=== PATIENT | male | born 1945 | race Caucasian/White ===

== ENCOUNTER → 2020-07-25 08:43 | Outpatient (BNVA) | payer OTHER, SELFPAY | PROVIDERS: PCP Family Medicine; Referring Provider Family Medicine; Visit Provider Urology | DX: Z76.89 Persons encountering health services in other specified circumstances (principal) ==

== ENCOUNTER → 2021-10-07 08:58 | Outpatient (BNVA) | payer OTHER, SELFPAY | PROVIDERS: PCP Family Medicine; Visit Provider Urology ==

== ENCOUNTER → 2021-11-05 08:59 | Outpatient (BNVA) | payer OTHER, SELFPAY | PROVIDERS: PCP Family Medicine; Visit Provider Urology | DX: Z85.51 Personal history of malignant neoplasm of bladder (principal); T83.190A Other mechanical complication of urinary electronic stimulator device, initial encounter; N31.9 Neuromuscular dysfunction of bladder, unspecified | CPT/HCPCS: 52000 ==

== ENCOUNTER 2021-12-14 06:07 | Day surgery (SDC) | payer OTHER, SELFPAY ==
[2021-12-08 11:00] VITALS: BMI 30.7
--- NOTE | 2021-12-11 09:49 | HO.ANESPROP2 ---
Documented by User: Abbi Abarca NP 12/11/21 09:49 HPI - Anesthesia Eval Consult details Narrative: 76yo M for Interstim Generator Change with lead replacement Eliquis for DVT/Stroke Optimized per PCP and ok to hold eliquis PMFSH Active Problems Active Problems: All Active Problems (Updated 12/08/21 @ 10:44 by Tatum Dave RN) Urinary urgency (Acute) Urinary frequency (Acute) Microscopic hematuria (Acute) Bladder cancer (Acute) Hypotonic neurogenic bladder (Acute) Past Medical History Medical History (Updated 12/08/21 @ 10:44 by Tatum Dave RN) DVT (deep venous thrombosis) Glaucoma H/O urinary frequency Hx of bladder cancer Status post insertion of nerve stimulator Stroke Surgical History Surgical History (Updated 12/08/21 @ 10:44 by Tatum Dave RN) History of surgery Hx of cystoscopy Social History Social History Patient Tobacco Use Status: Tobacco use Unknown Meds Allergies Allergy/AdvReac Type Severity Reaction Status Date / Time No Known Allergies Allergy Verified 10/07/21 09:02 [No Known Allergies*] Home Medications Medication Instructions Recorded Confirmed Last Taken Type dorzolamide 22.3 mg-timolol 6.8 1 drp OPHTHALMIC (EYE) Q12H 07/25/20 12/08/21 12/14/21 History mg/mL eye drops latanoprost 0.005 % eye drops 1 drp OPHTHALMIC (EYE) BEDTIME 07/25/20 12/08/21 Unknown History omeprazole 20 mg capsule,delayed 20 mg PO DAILY 07/25/20 Unknown History release apixaban 5 mg tablet (Eliquis) 5 mg PO BID 10/07/21 12/08/21 12/07/21 History netarsudil 0.02 % eye drops 1 drp OPHTHALMIC (EYE) DAILY 10/07/21 12/08/21 12/14/21 History (Rhopressa) Exam Exam Date and Time: December 11, 2021 0949 Height,Weight and Vital Signs: Height 5 ft 9 in Weight 94.347 kg Assessment and Plan Assessment Anesthesia Assessment: Chart Reviewed Documented by User: Rafita Gay MD 12/14/21 16:56 [facility] Past Medical History Medical History (Updated 12/08/21 @ 10:44 by Tatum Dave RN) DVT (deep venous thrombosis) Glaucoma H/O urinary frequency Hx of bladder cancer Status post insertion of nerve stimulator Stroke Family History Family history of problems with anesthesia: No Surgical History Surgical History (Updated 12/08/21 @ 10:44 by Tatum Dave RN) History of surgery Hx of cystoscopy History of Problems with Anesthesia: No Social History Social History Patient Tobacco Use Status: Tobacco use Unknown Meds Allergies Allergy/AdvReac Type Severity Reaction Status Date / Time No Known Allergies Allergy Verified 10/07/21 09:02 [No Known Allergies*] Home Medications Medication Instructions Recorded Confirmed Last Taken Type dorzolamide 22.3 mg-timolol 6.8 1 drp OPHTHALMIC (EYE) Q12H 07/25/20 12/08/21 12/14/21 History mg/mL eye drops latanoprost 0.005 % eye drops 1 drp OPHTHALMIC (EYE) BEDTIME 07/25/20 12/08/21 Unknown History omeprazole 20 mg capsule,delayed 20 mg PO DAILY 07/25/20 Unknown History release apixaban 5 mg tablet (Eliquis) 5 mg PO BID 10/07/21 12/08/21 12/07/21 History netarsudil 0.02 % eye drops 1 drp OPHTHALMIC (EYE) DAILY 10/07/21 12/08/21 12/14/21 History (Rhopressa) Exam Airway Mallampati Class: III TM Dist: >3cm Neck ROM: Full Denture: Upper Loose/Missing/Broken Teeth: Yes Heart: rrr Lungs: bl breath sounds Assessment and Plan Assessment Anesthesia Assessment: Anesthesia Plan Discussed Final Anesthetic Review Family History of Problems with Anesthesia: No History of Problems with Anesthesia: No NPO: Yes ASA Class: III Final Preanesthetic Review: No Changes in Pt Med Stat, Meds/Allgs Chart Reviewed, Consent Obtained/Reviewed and Anes Risks/Benef Reviewed Patient Risk: Intermediate Procedure Risk: Intermediate Anesthetic Plan Anesthetic Plan: MAC: Disposition: Standard PACU
--- NOTE | ~2021-12-14 | FL_ITS ---
EXAMINATION: XR FLUOROSCOPY WITH IMAGES CLINICAL INFORMATION: InterStim lead change. COMPARISON: None. TECHNIQUE: Fluoroscopy performed by Dr. Junior Gifford Fluoroscopy time: 78.8 seconds Dose: 48.02 mGy Images: 2 FINDINGS: There is presacral insertion of InterStim lead which has been changed as per history. FL/FL guidance in OR IMPRESSION: Fluoroscopy was provided to the referring physician for change of lead.
[2021-12-14 06:30] VITALS: BP 172/69; PULSE 47; RESP 16; TEMP 36.5; O2SAT 99
[2021-12-14] MEDS: Lactated Ringers 1,000 ML 100 ML IVCONT (06:39)
--- NOTE | 2021-12-14 07:35 | MHC.SHP ---
Pre-Procedural Eval Section A Date of Service: 12/14/21 The patient is an INPATIENT: No Changes since office visit: No Cold of Flu in the past 2 weeks, No New Medical Problems, No Changes in Medication and No Patient answered all questions The History & Physical has been completed within 30 days and I have reviewed it.: Yes Section B Chief Complaint: urge incontinance Details of Present Illness: INterstim generator and lead not working Allergies: Allergies Allergy/AdvReac Type Severity Reaction Status Date / Time No Known Allergies Allergy Verified 10/07/21 09:02 [No Known Allergies*] Plan Diagnosis/Plan: Unchanged (chnage of lead and generator) I have reviewed the history and physical and performed a pertinent physical examination on my patient. No changes have occurred unless specified.
[2021-12-14 09:42] VITALS: BP 129/73; PULSE 95; RESP 16; TEMP 36.6; O2SAT 97
--- NOTE | 2021-12-14 09:49 | W.PM.OPN ---
Operative Note Operative Note Date of Service: 12/14/21 Narrative: PreOperative Diagnosis: Overactive bladder with urinary urgency and frequency Post Operative Diagnosis: Overactive bladder with urinary urgency and frequency Procedure: 1.) Removal of InterStim lead 2.) Removal of InterStim battery 3.) Placement of InterStim lead 4.) Placement of InterStim battery Surgeon: Dr Balta Pacheco Anesthesia: sedation Indications for procedure: overactive bladder failure response to oral medications. Had indwelling InterStim for over 10 years. Battery and lead no longer effective. Procedure: After informed consent was verified the patient was brought to the operating room. Sedation anesthesia was administered per protocol. the patient was placed in a prone position and prepped and draped in a sterile fashion. Safety pause time-out was performed. Local anesthetic was infiltrated around the initial battery pocket incision on Is lateral superior buttock. Incision was made and taken down till the battery was encountered. The battery pocket was opened and a battery brought out to the skin. Using the C-arm and a snap the lead entering S3 on the right side was targeted. This was below the original sacral incision. Local anesthetic was infiltrated around the prior incision and incision made through the skin. Using blunt dissection the original lead was isolated and brought up through our skin incision. This was get disconnected from the battery to give us the full lead in the sacral position. The lead was dissected down until we could palpate the transition to the thickened plastic. Using a right angle clamp we were able to fully withdrawal the old lead from its position in the S3 foramen. Initially we attempted to replace the lead into the S3 position on the right side. The needle on imaging consistently introduced to S4 or S2. On testing neither position elicited appropriate responses. Decision was made to proceed to lead placement on the left side. Using the C-arm in an AP and lateral view the finding needle was introduced into the S3 foramen running from a caudad to chordal direction. Using the development team lead we could confirm good toe movement and Dony response. The internal introducer from the needle was removed and the control lead placed. The find needle was removed and the dilator sheath introduced. Under fluoroscopic guidance the dilator sheath was advanced till the marker was seen mid point through the sacral bone on the lateral image. The internal cannula from the dilator was removed. The guidewire was removed. The active lead was then introduced through the dilator sheath and advanced so that the 3rd and 4th marked electrodes crossed the internal boundary line of the sacrum. The testing electrode was then hooked up to each of the wire electrodes 0 through 3 and good Dony and toe response is was seen at low amplitude 2.0 amps. This confirmed the clinically relevant position of the live wire. Under live fluoroscopy the introducer sheath was removed deploying the tines of the wire ensuring that the live wire remained in the previously described position. The tunneling device was then used to bridge the distance between the sacral vertical incision and the desired location of the battery pocket. The live wire was placed through the tunneling device and brought out into the battery pocket. The sacral incision was washed with water. A new battery was connected to the live wire and placed into the subcutaneous pocket. The battery was tested and had positive nut picker and displayed normal impedance on all 4 channels. The battery pocket had been washed with sterile water prior to placement of the battery. Interrupted 3-0 Vicryl sutures were used to close the defect spaces and bring skin edges together. Running 4-0 Monocryl sutures were used to appose skin edges. Incisions were dressed using skin glue followed by Tegaderm dressing. Patient tolerated procedure well was extubated in operating room transferred in stable condition to the recovery area. CPT full device replacement 29950, [id number], [id number]
[2021-12-14 09:57] VITALS: BP 161/77; PULSE 96; RESP 16; O2SAT 97
[2021-12-14 10:12] VITALS: BP 156/81; PULSE 65; RESP 16; O2SAT 97
[2021-12-14 10:28] VITALS: BP 155/74; PULSE 66; RESP 16; TEMP 36.1; O2SAT 96
[2021-12-14 10:45] VITALS: BP 156/81; PULSE 68; RESP 16; O2SAT 96
== END 2021-12-14 10:58 | disposition home or self-care (01) ==
PROVIDERS: PCP Family Medicine; Visit Provider Urology
PROC: (CPT 63685; principal; 2021-12-14 07:30)
DX: N39.41 Urge incontinence (principal); R35.0 Frequency of micturition; N32.81 Overactive bladder; C67.9 Malignant neoplasm of bladder, unspecified; Z96.82 Presence of neurostimulator; H40.9 Unspecified glaucoma; Z86.73 Personal history of transient ischemic attack (TIA), and cerebral infarction without residual deficits; Z86.718 Personal history of other venous thrombosis and embolism; Z79.01 Long term (current) use of anticoagulants
CPT/HCPCS: 64561; 64590; C1767; C1778; C1787; J0690; J2250; J3010

== ENCOUNTER → 2022-01-01 09:06 | Outpatient (BNVA) | payer OTHER, SELFPAY | PROVIDERS: PCP Family Medicine; Visit Provider Urology | DX: Z13.89 Encounter for screening for other disorder (principal) ==

== ENCOUNTER → 2022-02-02 09:28 | Outpatient (BNVA) | payer OTHER, SELFPAY | PROVIDERS: PCP Family Medicine; Visit Provider Urology | DX: Z13.89 Encounter for screening for other disorder (principal) ==

== ENCOUNTER 2022-08-10 10:06 | Outpatient (REF) | payer OTHER, SELFPAY ==
[2022-08-10 17:11] LABS: Urine Cytology See Pathology rpt
== END 2022-08-10 10:07 | disposition home or self-care (01) ==
LOC: HO.LAB 10:06
PROVIDERS: Visit Provider Urology
DX: C67.9 Malignant neoplasm of bladder, unspecified (principal); N31.9 Neuromuscular dysfunction of bladder, unspecified; R35.0 Frequency of micturition; R31.29 Other microscopic hematuria
CPT/HCPCS: 51798; 88112

== ENCOUNTER 2022-10-07 10:42 | Outpatient (REF) | payer OTHER, SELFPAY ==
[2022-10-07 17:50] LABS: Urine Cytology See Pathology rpt
== END 2022-10-07 10:43 | disposition home or self-care (01) ==
LOC: HO.LAB 10:42
PROVIDERS: PCP Family Medicine; Visit Provider Urology
DX: C67.9 Malignant neoplasm of bladder, unspecified (principal); R35.0 Frequency of micturition; R33.9 Retention of urine, unspecified; N31.9 Neuromuscular dysfunction of bladder, unspecified; R39.15 Urgency of urination
CPT/HCPCS: 52000; 88112

== ENCOUNTER 2022-11-22 06:03 | Day surgery (SDC) | payer OTHER, SELFPAY ==
--- NOTE | 2022-11-19 10:58 | P.CONAN_ITS ---
Documented by User: Abbi Abarca NP 11/19/22 10:58 HPI - Anesthesia Eval Consult details Narrative: 77yo M for Cystoscopy Bladder Fulguration s/p interstim 12/2021 with MAC Doreenquis for DVT PMFSH Active Problems Active Problems: All Active Problems (Updated 01/01/22 @ 09:56 by Balta Pacheco MD) Urinary urgency (Acute) Urinary frequency (Acute) Microscopic hematuria (Acute) Bladder cancer (Acute) Hypotonic neurogenic bladder (Acute) Past Medical History Medical History DVT (deep venous thrombosis) Glaucoma H/O urinary frequency Hx of bladder cancer Stroke Family History Family history of problems with anesthesia: No Surgical History Surgical History (Updated 11/17/22 @ 14:09 by Tatum Dave RN) History of surgery Hx of cystoscopy Status post insertion of nerve stimulator History of Problems with Anesthesia: No Social History Social History Patient Tobacco Use Status: Former Tobacco user Quit Date: 25 years ago Use of substances other than those prescribed or required for medical reasons: No Are you DNR?: No Advance Directives: No Advance Directives Information Provided: Yes Meds Allergies Allergy/AdvReac Type Severity Reaction Status Date / Time No Known Allergies Allergy Verified 01/01/22 09:35 [No Known Allergies*] Home Medications Medication Instructions Recorded Confirmed Last Taken Type dorzolamide 22.3 mg-timolol 6.8 1 drp ophthalmic (eye) Q12H 07/25/20 11/22/22 12/14/21 History mg/mL eye drops latanoprost 0.005 % eye drops 1 drp ophthalmic (eye) BEDTIME 07/25/20 11/22/22 Unknown History apixaban 5 mg tablet (Eliquis) 5 mg PO BID 10/07/21 11/22/22 11/17/22 History netarsudil 0.02 % eye drops 1 drp ophthalmic (eye) DAILY 10/07/21 11/22/22 12/14/21 History (Rhopressa) brinzolamide 1 %-brimonidine 0.2 % 1 drp ophthalmic (eye) Q12H 02/02/22 11/22/22 Unknown History eye drops,suspension (Simbrinza) timolol maleate 0.5 % eye drops 1 drp ophthalmic (eye) QAM 02/02/22 11/22/22 Unknown History Exam Exam Date and Time: November 19, 2022 1058 Height,Weight and Vital Signs: Height 5 ft 9 in Assessment and Plan Assessment Anesthesia Assessment: Chart Reviewed Final Anesthetic Review Family History of Problems with Anesthesia: No History of Problems with Anesthesia: No Documented by User: Zaheer Higgins MD 11/22/22 07:32 [facility] Past Medical History Medical History DVT (deep venous thrombosis) Glaucoma H/O urinary frequency Hx of bladder cancer Stroke Surgical History Surgical History (Updated 11/17/22 @ 14:09 by Tatum Dave RN) History of surgery Hx of cystoscopy Status post insertion of nerve stimulator Social History Social History Patient Tobacco Use Status: Former Tobacco user Quit Date: 25 years ago Use of substances other than those prescribed or required for medical reasons: No Are you DNR?: No Advance Directives: No Advance Directives Information Provided: Yes Meds Allergies Allergy/AdvReac Type Severity Reaction Status Date / Time No Known Allergies Allergy Verified 01/01/22 09:35 [No Known Allergies*] Home Medications Medication Instructions Recorded Confirmed Last Taken Type dorzolamide 22.3 mg-timolol 6.8 1 drp ophthalmic (eye) Q12H 07/25/20 11/22/22 12/14/21 History mg/mL eye drops latanoprost 0.005 % eye drops 1 drp ophthalmic (eye) BEDTIME 07/25/20 11/22/22 Unknown History apixaban 5 mg tablet (Eliquis) 5 mg PO BID 10/07/21 11/22/22 11/17/22 History netarsudil 0.02 % eye drops 1 drp ophthalmic (eye) DAILY 10/07/21 11/22/22 12/14/21 History (Rhopressa) brinzolamide 1 %-brimonidine 0.2 % 1 drp ophthalmic (eye) Q12H 02/02/22 11/22/22 Unknown History eye drops,suspension (Simbrinza) timolol maleate 0.5 % eye drops 1 drp ophthalmic (eye) QAM 02/02/22 11/22/22 Unknown History Exam Airway Mallampati Class: I TM Dist: >3cm Neck ROM: Full Partial: Upper Heart: ok Lungs: ok Assessment and Plan Final Anesthetic Review NPO: Yes ASA Class: III Final Preanesthetic Review: No Changes in Pt Med Stat, Meds/Allgs Chart Reviewed, Consent Obtained/Reviewed and Anes Risks/Benef Reviewed Patient Risk: Intermediate Procedure Risk: Low Anesthetic Plan Anesthetic Plan: GA and Agree w/ Assess. and Plan Disposition: Standard PACU
[2022-11-22 06:21] VITALS: BP 131/69; PULSE 58; RESP 18; TEMP 36.4; O2SAT 98; BMI 30.2; BMI 30.8
[2022-11-22] MEDS: Lactated Ringers 1,000 ML 100 ML IVCONT (06:42)
--- NOTE | 2022-11-22 07:37 | P.HPSUR_ITS ---
Pre-Procedural Eval Section A Date of Service: 11/22/22 The patient is an INPATIENT: No Changes since office visit: No Cold of Flu in the past 2 weeks, No New Medical Problems, No Changes in Medication and No Patient answered all questions The History & Physical has been completed within 30 days and I have reviewed it.: No Section B Chief Complaint: Malignant neoplasm of bladder, unspecified Relevant Family History (Specify if Yes): No Relevant Social History: None Present Medications: see Short Stay Collaborative assessment Medical History: Significant History History of Previous Operations: Relevant previous surgery/procedure and date(s) Allergies: Allergies Allergy/AdvReac Type Severity Reaction Status Date / Time No Known Allergies Allergy Verified 01/01/22 09:35 [No Known Allergies*] Review of Systems Sugical H&P ROS: Negative: Constitution, Cardiovascular, Respiratory, Neurological, Psychiatric, Hem-Onc, Allergic/Immunologic, Gastrointestinal, Genitourinary, Musculoskeletal, Integumentary, Endocrine and Eyes/Ears/Nose/Throat Exam Surgical H&P Exam: Normal: HEENT, Normal: Heart, Normal: Lungs, Normal: Extremit ies, Normal: Abdomen, Normal: Skin and Normal: Neurological Plan Diagnosis/Plan: Unchanged ( cystoscopy, bladder biopsy, fulguration) I have reviewed the history and physical and performed a pertinent physical examination on my patient. No changes have occurred unless specified. Time Spent With Patient Time: Total time managing care of this patient today ____ minutes.
[2022-11-22 08:15] VITALS: BP 103/61; PULSE 61; RESP 16; TEMP 36.3; O2SAT 94
[2022-11-22 08:20] VITALS: BP 110/79; PULSE 67; RESP 16; O2SAT 95
[2022-11-22 08:25] VITALS: BP 125/62; PULSE 54; RESP 16; O2SAT 95
[2022-11-22 08:30] VITALS: BP 131/60; PULSE 53; RESP 16; O2SAT 95
[2022-11-22] MEDS: Acetaminophen 325 MG TABLET 975 MG PO (08:35)
[2022-11-22] MEDS: Phenazopyridine HCL 100 MG TABLET PO (08:37)
[2022-11-22 08:45] VITALS: BP 134/66; PULSE 59; RESP 16; O2SAT 98
--- NOTE | 2023-01-20 14:36 | W.PM.OPN ---
Operative Note Operative Note Date of Service: 11/22/22 Narrative: PreOperative Diagnosis: Hematuria with nonhealing bladder tumor Post Operative Diagnosis: Hematuria with nonhealing bladder tumor Procedure: cystoscopy, bladder biopsy, fulguration Surgeon: Dr Balta Pacheco Anesthesia: LMA Indications for procedure: Nonhealing bladder tumor on office cystoscopy. Here for cystoscopy, bladder biopsy. Evaluation. Procedure: After informed consent was verified the patient was brought to the operating room and placed in a supine position. Anesthesia was administered per protocol. The patient was placed in modified dorsal lithotomy position and prepped and draped in a sterile fashion. Safety pause time-out was performed. Antibiotics being given. Cystoscopy was performed. Right side area of nonhealing prior bladder resection noted. Biopsy performed Biopsy area +1 cm radius of bladder tissue was fulgurated The patient tolerated the procedure well. They were extubated in operating room and transferred in stable conditions recovery area. Pathology: Bladder biopsies Drains: None
== END 2022-11-22 09:45 | disposition home or self-care (01) ==
PROVIDERS: PCP Family Medicine; Visit Provider Urology
PROC: 0T5B8ZZ Destruction of Bladder, Via Natural or Artificial Opening Endoscopic (ICD-10-PCS; CPT 52234; principal; 2022-11-22 07:30)
DX: C67.9 Malignant neoplasm of bladder, unspecified (principal); Z96.82 Presence of neurostimulator; H40.9 Unspecified glaucoma; Z86.718 Personal history of other venous thrombosis and embolism; Z86.73 Personal history of transient ischemic attack (TIA), and cerebral infarction without residual deficits; Z79.01 Long term (current) use of anticoagulants; Z79.899 Other long term (current) drug therapy; Z87.891 Personal history of nicotine dependence
CPT/HCPCS: 52234; 88305; 88307; J1956; J3010

== ENCOUNTER → 2022-12-07 10:30 | Outpatient (BNVA) | payer OTHER, SELFPAY | PROVIDERS: PCP Family Medicine; Visit Provider Nurse Practitioner Family | DX: R39.15 Urgency of urination (principal); R35.0 Frequency of micturition; R31.29 Other microscopic hematuria; C67.9 Malignant neoplasm of bladder, unspecified | CPT/HCPCS: 51798 ==

== ENCOUNTER 2023-04-12 09:46 | Outpatient (AMB) | payer OTHER, SELFPAY ==
--- NOTE | 2023-04-12 09:58 | A.OFFVIS_ITS ---
Intake Intake Visit Reasons: 4m/cysto Intake Note: Patient is present for Cystoscopy Urology Med: Solifenacin (Patient has not been taking daily) Antibiotic Allergy: None Blood Thinner: Eliquis [facility]: [facility] Cyst[facility] used during Procedure LOT#:[id number] EXP: 01/31/2025 Allergies No Known Allergies [No Known Allergies*] Allergy (Verified 04/12/23 09:59) Medication List - Last Reconciled 04/12/23 by Balta Pacheco MD apixaban (Eliquis) 5 mg PO BID brinzolamide-brimonidine 1-0.2 % (Simbrinza) 1 drp ophthalmic (eye) Q12H dorzolamide-timolol 22.3-6.8 mg/mL 1 drp ophthalmic (eye) Q12H latanoprost 0.005% 1 drp ophthalmic (eye) BEDTIME levofloxacin 250 mg PO daily 3 days netarsudil 0.02% (Rhopressa) 1 drp ophthalmic (eye) DAILY solifenacin (Vesicare) 5 mg PO DAILY 90 days timolol maleate 0.5% 1 drp ophthalmic (eye) QAM HPI HPI Comments History of Present Illness Details Hernan is a pleasant 77 year old year old male patient of Dr. Panchal. He seen for following urologic conditions - lower urinary tract symptoms - urgency and frequency with incomplete emptying - bladder cancer Check cystoscopy today Grade 3 trabeculation Recommend only 1 coffee per day He also drinks soda. Recommend malcolm antwon only. Abx given for 3 days Refill anticholinergic Lower urinary tract symptoms Prior prostate intervention Urinary urgency frequency with incomplete emptying Had responded well to InterStim placement InterStim interrogated 2019 with traveling representative Nonfunctioning generator InterStim Lead and generator replacement 12/01 bladder Bladder cancer - superfical Prior superficial bladder cancer Cystoscopy 11/03 NAD with TURP defect; Cystoscopy with bladder biopsy and fulguration on 12/01; pathology results (Minute fragment of chronically inflamed lamina propria; no urothelium identified; multiple additional levels examined) - 04/03 NAD Now with occasional hematuria Has been on anticoagulation for femoral clot PFSH Medical History DVT (deep venous thrombosis) Glaucoma H/O urinary frequency Hx of bladder cancer Stroke Surgical History History of surgery Hx of cystoscopy Status post insertion of nerve stimulator Social History Patient Tobacco Use Status: Former Tobacco user Quit Date: 25 years ago Review of Systems Const Denies chills and Denies fever(s) Card Reports no additional complaints and Denies syncope Resp Denies cough GI Denies abdominal pain and Denies heartburn Reports as per HPI and Denies change in libido Neuro Denies syncope Psych Denies change in libido Endo Denies change in libido Physical Exam Const General: cooperative, healthy appearing, comfortable and no acute distress Orientation/consciousness: patient oriented x3 HEENT Face and sinus: Yes normal facial exam Mouth: moist mucous membranes Neck Neck: Yes normal visual inspection, Yes full ROM and Yes trachea midline Chest Chest palpation & inspection: normal inspection of the chest Resp Effort & Inspection: normal respiratory effort, able to speak in complete sentences and no respiratory distress GI Inspection: Yes normal to inspection Back/Spine/Pelvis Cervical Spine: normal cervical lordosis Thoracic/Lumbar Spine: thoracic and lumbar spine normal to inspection Skin General skin exam: no rashes or lesions noted Neuro General: patient oriented x3, gait normal, tone normal and moves all extremities Extrem General: Yes normal to inspection and Yes capillary refill normal Office Procedures Cystoscopy Consent Discussed risk and benefit or proposed procedure with the patient. Information consent for procedure given to the patient. Discussed technical aspects, risks, benefits and alternatives in full. Addressed all of the patient's questions and concerns regarding the procedure. The patient demonstrated knowledge and under standing. They wish to proceed with this procedure. Preparation The patient was prepped in the usual manner. A orthopedic rn was present and in the room. Genitalia was prepped with betadine solution in a sterile manner. Lidocaine Jelly 2% was placed into the urethra and 16Fr flexible Olympus cystoscope was inserted into the meatus after adequate lubrication. Procedure Meatus circumcised Urethra anterior posterior urethra normal Prostatic Urethra TURP defect Bladder examination with retroflexion of cystoscope Bladder Orifices normal shape and position Bladder Capacity large Trabeculations grade 3 Cellule Formation - Diverticulum Formation - Mucosal Erythema - Bladder Tumor - 25526-[id number] Procedure code (CPT) selection complete Office Meds lidocaine HCl Performing Provider: Balta Pacheco MD Administered by: Elana Dasilva RN on 04/12/23 10:02 Dose Route Admin Location Lot Number Expiration Date NDC [employer] 10 mL intra-urethral nitrofurantoin monohyd/m-cryst 100 mg Performing Provider: Balta Pacehco MD Administered by: Elana Dasilva RN on 04/12/23 10:02 Dose Route Admin Location Lot Number Expiration Date NDC Car Seat Maker 100 mg PO Results AMB Urinalysis, Automated UA Leukoctes 0 Rubén/uL Last Edit by Katie Rivas, [facility] on 04/12/23 10:01 UA Nitrite Negative Last Edit by Katie Rivas, A on 04/12/23 10:01 UA Urobilinogen 0.2 mg/dL Last Edit by Katie Rivas, A on 04/12/23 10:0 1 UA Protein 15 mg/dL Last Edit by Katie Rivas, A on 04/12/23 10:01 UA pH 6.0 Last Edit by Katie Rivas, A on 04/12/23 10:01 UA Blood 200 Bjorn/uL Last Edit by Katie Rivas, A on 04/12/23 10:01 UA Specific [place] 1.020 Last Edit by Katei Rivas, A on 04/12/23 10: 01 UA Ketone Negative Last Edit by Katie Rivas, A on 04/12/23 10:01 UA Bilirubin 0 mg/dL Last Edit by Katie Rivas, A on 04/12/23 10:01 UA Glucose 0 mg/dL Last Edit by Katie Rivas, [facility] on 04/12/23 10:01 Results Reviewed Results Reviewed: Laboratory Last Values Urine pH (Auto) 6.0 04/12/23 10:00 Specific [place] (Auto) 1.020 04/12/23 10:00 Urine Protein (Auto) 15 mg/dL 04/12/23 10:00 Glucose (UA)(Auto) 0 mg/dL 04/12/23 10:00 Urine Ketones (Auto) Negative 04/12/23 10:00 Urine Blood (Auto) 200 Bjorn/uL 04/12/23 10:00 Urine Nitrite (Auto) Negative 04/12/23 10:00 Urine Bilirubin (Auto) 0 mg/dL 04/12/23 10:00 Urine Urobilinogen (Auto) 0.2 mg/dL 04/12/23 10:00 Leukocyte Esterase (Auto) 0 Rubén/uL 04/12/23 10:00 Assessment & Plan Assessment & Plan (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, full replacement 2021 Code(s): N31.9 - Neuromuscular dysfunction of bladder, unspecified (2) Bladder cancer: Code(s): C67.9 - Malignant neoplasm of bladder, unspecified Plan Continue surveillance Orders: Orders Urine Cytology Today C67.9 - Malignant neoplasm of bladder, unspecified AMB Cystoscopy Today C67.9 - Malignant neoplasm of bladder, unspecified AMB Urinalysis Automated Today Z13.9 - Encounter for screening, unspecified Medications: New levofloxacin 250 mg PO daily 3 tabs 0RF 3 days C67.9 - Malignant neoplasm of bladder, unspecified Patient Instructions: Imaging studies, laboratory and physical exam results were discussed and reviewed in detail. No major barriers to patient understanding were identified. An opportunity to ask questions regarding the treatment plan was provided. All questions were answered. The patient expressed understanding and agreement with the above treatment plan. The patient is aware they should contact our office by phone for worsening of their current condition or the appearance of new urologic symptoms. Compliance is encouraged with any medications and followup testing that is ordered. It is a privilege to participate in the urologic care of your patient. If you have any questions or concerns regarding treatment for the above conditions, or other urologic issues, please do not hesitate to contact me. The office telephone contact is [phone]. This note is constructed using voice recognition software. While every effort has been made to ensure accuracy c programmer errors may have been included. Yours sincerely, Dr Balta Pacheco MD, DIANA [facility] - Urology Providers of Expert, Compassionate Care for the Genitourinary System Coding Level of Care Code Est Pt Level 3 (23121) Diagnoses Hypotonic neurogenic bladder N31.9 Bladder cancer C67.9 CPT Codes Cystoscopy - CPT: 85958-[id number] ([id number])
== END 2023-04-12 10:29 | disposition home or self-care (01) ==
PROVIDERS: Visit Provider Urology
DX: N31.9 Neuromuscular dysfunction of bladder, unspecified (principal); C67.9 Malignant neoplasm of bladder, unspecified
CPT/HCPCS: 52000; 99213

== ENCOUNTER 2023-04-12 09:46 | Outpatient (REF) | payer OTHER, SELFPAY ==
[2023-04-12 19:41] LABS: Urine Cytology See Pathology rpt
== END 2023-04-12 09:47 | disposition home or self-care (01) ==
LOC: HO.LAB 09:46
PROVIDERS: Visit Provider Urology
DX: C67.9 Malignant neoplasm of bladder, unspecified (principal)
CPT/HCPCS: 52000; 88112

== ENCOUNTER 2023-10-20 08:53 | Outpatient (REF) | payer OTHER, SELFPAY | END 2023-10-20 08:54 | disposition home or self-care (01) | LOC: HO.LAB 08:53 | PROVIDERS: PCP Family Medicine; Visit Provider Urology | DX: C67.9 Malignant neoplasm of bladder, unspecified (principal); R35.0 Frequency of micturition; N31.9 Neuromuscular dysfunction of bladder, unspecified | CPT/HCPCS: 52000; 81003; 88121 ==

== ENCOUNTER 2023-10-20 08:53 | Outpatient (AMB) | payer OTHER, SELFPAY ==
--- NOTE | 2023-10-20 08:54 | A.OFFVIS_ITS ---
Intake Intake Visit Reasons: 6M CYSTO(Bladder Ca) Intake Note: Patient is Present for Cystoscopy Urology Med: Vesicare Antibiotic Allergy: None Blood Thinner: Eliquis Patient confirmed that he has no new allergies to both medication and Antibiotic Confirmed that he has no changes in medication and is currently on Eliquis Daily URO- G Disposable Cystoscope lot: exp: Allergies No Known Allergies [No Known Allergies*] Allergy (Verified 10/20/23 09:00) HPI HPI Comments History of Present Illness Details Hernan is a pleasant 77 year old year old male patient of Dr. Panchal. He seen for following urologic conditions - lower urinary tract symptoms - urgency and frequency with incomplete emptying - bladder cancer Check cystoscopy today Grade 3 trabeculation Good response from InterStim No lesions seen in bladder Lower urinary tract symptoms Prior prostate intervention Urinary urgency frequency with incomplete emptying Had responded well to InterStim placement InterStim interrogated 2019 with community engagement representative Nonfunctioning generator InterStim Lead and generator replacement 12/01 bladder Bladder cancer - superfical Prior superficial bladder cancer Cystoscopy 11/03 NAD with TURP defect; Cystoscopy with bladder biopsy and fulguration on 12/01; pathology results (Minute fragment of chronically inflamed lamina propria; no urothelium identified; multiple additional levels examined) - 04/03 NAD Now with occasional hematuria Has been on anticoagulation for femoral clot PFSH Medical History DVT (deep venous thrombosis) Glaucoma Hx of bladder cancer Stroke H/O urinary frequency Surgical History Status post insertion of nerve stimulator Hx of cystoscopy History of surgery Social History Patient Tobacco Use Status: Former Tobacco user Quit Date: 25 years ago Review of Systems Const Denies chills and Denies fever(s) Card Reports no additional complaints and Denies syncope Resp Denies cough GI Denies abdominal pain and Denies heartburn Reports as per HPI and Denies change in libido Neuro Denies syncope Psych Denies change in libido Endo Denies change in libido Physical Exam Const General: cooperative, healthy appearing, comfortable and no acute distress Orientation/consciousness: patient oriented x3 HEENT Face and sinus: Yes normal facial exam Mouth: moist mucous membranes Neck Neck: Yes normal visual inspection, Yes full ROM and Yes trachea midline Chest Chest palpation & inspection: normal inspection of the chest Resp Effort & Inspection: normal respiratory effort, able to speak in complete sentences and no respiratory distress GI Inspection: Yes normal to inspection Back/Spine/Pelvis Cervical Spine: normal cervical lordosis Thoracic/Lumbar Spine: thoracic and lumbar spine normal to inspection Skin General skin exam: no rashes or lesions noted Neuro General: patient oriented x3, gait normal, tone normal and moves all extremities Extrem General: Yes normal to inspection and Yes capillary refill normal Office Procedures Cystoscopy Consent Discussed risk and benefit or proposed procedure with the patient. Information consent for procedure given to the patient. Discussed technical aspects, risks, benefits and alternatives in full. Addressed all of the patient's questions and concerns regarding the procedure. The patient demonstrated knowledge and understanding. They wish to proceed with this procedure. Preparation The patient was prepped in the usual manner. A automatic presser was present and in the room. Genitalia was prepped with betadine solution in a sterile manner. Lidocaine Jelly 2% was placed into the urethra and 16Fr flexible Olympus cystoscope was inserted into the meatus after adequate lubrication. Procedure Meatus circumcised Urethra anterior and posterior urethra normal Prostatic Urethra TURP defect with some bladder neck narrowing Bladder examination with retroflexion of cystoscope Bladder Orifices normal shape and position Bladder Capacity medium Trabeculations grade 2 Cellule Formation - Diverticulum Formation - Mucosal Erythema - Bladder Tumor - [id number]-[id number] DISPOSABLE SCOPE URO-G FLEXIBLE SCOPE Procedure code (CPT) selection complete Office Meds lidocaine HCl 2 % mucosal jelly in applicator Performing Provider: Balta Pacheco MD Performing Location: [facility] Administered by: Elana Gurrola RN on 10/20/23 09:11 Dose Route Admin Location Dispensed Lot Number Expiration Date [facility] [employer] Press Operator 10 mL intra-urethral 10 mL nitrofurantoin monohydrate/macrocrystals 100 mg capsule Performing Provider: Balta Pacheco MD Performing Location: [facility] Administered by: Elana Gurrola RN on 10/20/23 09:11 Dose Route Admin Location Dispensed Lot Number Expiration Date [facility] [employer] Operator 100 mg PO 1 cap naproxen 500 mg tablet Performing Provider: Balta Pacheco MD Performing Location: [facility] Administered by: Elana Gurrola RN on 10/20/23 09:11 Dose Route Admin Location Dispensed Lot Number Expiration Date NDC [employer] Operator 500 mg PO 1 tab Results AMB Urinalysis, Automated UA Leukoctes 0 Rubén/uL Last Edit by OPAL Nj on 10/20/23 09:07 UA Nitrite Negative Last Edit by ROHAN NjA on 10/20/23 09:07 UA Urobilinogen 0.2 mg/dL Last Edit by OPAL Nj on 10/20/23 09:0 7 UA Protein 15 mg/dL Last Edit by ROHAN NjA on 10/20/23 09:07 UA pH 6.0 Last Edit by ROHAN NjA on 10/20/23 09:07 UA Blood 80 Bjorn/uL Last Edit by OPAL Nj on 10/20/23 09:07 UA Specific Switchback 1.030 Last Edit by OPAL Nj on 10/20/23 09: 07 UA Ketone Negative Last Edit by OPAL Nj on 10/20/23 09:07 UA Bilirubin 0 mg/dL Last Edit by ROHAN NjA on 10/20/23 09:07 UA Glucose 0 mg/dL Last Edit by OPAL Nj on 10/20/23 09:07 Results Reviewed Results Reviewed: Laboratory Last Values Urine pH (Auto) 6.0 10/20/23 09:00 Specific Switchback (Auto) 1.030 10/20/23 09:00 Urine Protein (Auto) 15 mg/dL 10/20/23 09:00 Glucose (UA)(Auto) 0 mg/dL 10/20/23 09:00 Urine Ketones (Auto) Negative 10/20/23 09:00 Urine Blood (Auto) 80 Bjorn/uL 10/20/23 09:00 Urine Nitrite (Auto) Negative 10/20/23 09:00 Urine Bilirubin (Auto) 0 mg/dL 10/20/23 09:00 Urine Urobilinogen (Auto) 0.2 mg/dL 10/20/23 09:00 Leukocyte Esterase (Auto) 0 Rubén/uL 10/20/23 09:00 Assessment & Plan Assessment & Plan (1) Urinary frequency: Code(s): R35.0 - Frequency of micturition (2) 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, full replacement 2021 Code(s): N31.9 - Neuromuscular dysfunction of bladder, unspecified (3) Bladder cancer: Code(s): C67.9 - Malignant neoplasm of bladder, unspecified Plan Six-month follow-up PVR Orders: Orders AMB Cystoscopy Today C67.9 - Malignant neoplasm of bladder, unspecified FISH Bladder Cancer Today C67.9 - Malignant neoplasm of bladder, unspecified AMB Urinalysis Automated Today C67.9 - Malignant neoplasm of bladder, unspecified, Z13.9 - Encounter for screening, unspecified Patient Instructions: Imaging studies, laboratory and physical exam results were discussed and reviewed in detail. No major barriers to patient understanding were identified. An opportunity to ask questions regarding the treatment plan was provided. All questions were answered. The patient expressed understanding and agreement with the above treatment plan. The patient is aware they should contact our office by phone for worsening of their current condition or the appearance of new urologic symptoms. Compliance is encouraged with any medications and followup testing that is ordered. It is a privilege to participate in the urologic care of your patient. If you crowe ve any questions or concerns regarding treatment for the above conditions, or other urologic issues, please do not hesitate to contact me. The office telephone contact is [phone]. This note is constructed using voice recognition software. While every effort has been made to ensure accuracy healthcare project manager errors may have been included. Yours sincerely, Dr Balta Pacheco MD, DIA[facility] - Urology Providers of Expert, Compassionate Care for the Genitourinary System Coding Level of Care Code Est Pt Level 3 (27252) Diagnoses Urinary frequency R35.0 Hypotonic neurogenic bladder N31.9 Bladder cancer C67.9 CPT Codes Cystoscopy - CPT: 68323-[id number] ([id number])
== END 2023-10-20 09:30 | disposition home or self-care (01) ==
PROVIDERS: PCP Family Medicine; Visit Provider Urology
DX: R35.0 Frequency of micturition (principal); N31.9 Neuromuscular dysfunction of bladder, unspecified; C67.9 Malignant neoplasm of bladder, unspecified; Z13.9 Encounter for screening, unspecified
CPT/HCPCS: 52000; 99213

== ENCOUNTER 2024-06-06 14:34 | Outpatient (REF) | payer OTHER, SELFPAY ==
[2024-06-06 17:56] LABS: Urine Cytology See Pathology rpt
== END 2024-06-06 14:35 | disposition home or self-care (01) ==
LOC: HO.LAB 14:34
PROVIDERS: PCP Family Medicine; Visit Provider Urology
DX: C67.9 Malignant neoplasm of bladder, unspecified (principal)
CPT/HCPCS: 52000; 81003; 88112

== ENCOUNTER 2024-06-06 14:34 | Outpatient (AMB) | payer OTHER, SELFPAY ==
--- NOTE | 2024-06-06 14:56 | A.OFFVIS_ITS ---
Intake Visit Reasons: 6M Cysto/PVR(Bladder Ca) Intake Note: Patient is Present for Cystoscopy Urology Med: Vesicare Antibiotic Allergy:None Blood Thinner: Eliquis Last FISH Cytology: 10/2023 URO- G Disposable Cystoscope lot: [id number] exp:12/21/2026 Cytology was sent to lab today Patient states that there is a White patch on his Testicle and he is concerned. Banquet Server Required: No Accompanied by: Self / Same As Patient Allergies No Known Allergies [No Known Allergies*] Allergy (Verified 06/06/24 15:00) HPI Comments Details: Hernan is a pleasant 77 year old year old male patient of Dr. Panchal. He seen for following urologic conditions - lower urinary tract symptoms - urgency and frequency with incomplete emptying - bladder cancer Six-month cystoscopy check Grade 3 trabeculation Good response from InterStim No lesions seen in bladder Lower urinary tract symptoms Prior prostate intervention Urinary urgency frequency with incomplete emptying Had responded well to InterStim placement InterStim interrogated 2019 with footwear sales representative Nonfunctioning generator InterStim Lead and generator replacement 12/01 bladder Bladder cancer - superfical Prior superficial bladder cancer Cystoscopy 11/03 NAD with TURP defect; Cystoscopy with bladder biopsy and fulguration on 12/01; pathology results (Minute fragment of chronically inflamed lamina propria; no urothelium identified; multiple additional levels examined) - 04/03 NAD, 12/03 NAD Now with occasional hematuria Has been on anticoagulation for femoral clot PFSH Medical History DVT (deep venous thrombosis) Glaucoma Hx of bladder cancer Stroke H/O urinary frequency Surgical History Status post insertion of nerve stimulator Hx of cystoscopy History of surgery Social History Patient Tobacco Use Status: Former Tobacco user Review of Systems Const Denies chills and Denies fever(s) Card Reports no additional complaints and Denies syncope Resp Denies cough GI Denies abdominal pain and Denies heartburn Reports as per HPI and Denies change in libido Neuro Denies syncope Psych Denies change in libido Endo Denies change in libido Physical Exam Const General: cooperative, healthy appearing, comfortable and no acute distress Orientation/consciousness: patient oriented x3 HEENT Face and sinus: Yes normal facial exam Mouth: moist mucous membranes Neck Neck: Yes normal visual inspection, Yes full ROM and Yes trachea midline Chest Chest palpation & inspection: normal inspection of the chest Resp Effort & Inspection: normal respiratory effort, able to speak in complete sentences and no respiratory distress GI Inspection: Yes normal to inspection Back/Spine/Pelvis Cervical Spine: normal cervical lordosis Thoracic/Lumbar Spine: thoracic and lumbar spine normal to inspection Skin General skin exam: no rashes or lesions noted Neuro General: patient oriented x3, gait normal, tone normal and moves all extremities Extrem General: Yes normal to inspection and Yes capillary refill normal Office Procedures Cystoscopy Consent Discussed risk and benefit or proposed procedure with the patient. Information consent for procedure given to the patient. Discussed technical aspects, risks, benefits and alternatives in full. Addressed all of the patient's questions and concerns regarding the procedure. The patient demonstrated knowledge and understanding. They wish to proceed with this procedure. Preparation The patient was prepped in the usual manner. A community nutrition educator was present and in the room. Genitalia was prepped with betadine solution in a sterile manner. Lidocaine Jelly 2% was placed into the urethra and 16Fr flexible Olympus cystoscope was inserted into the meatus after adequate lubrication. Procedure Cystoscopy performed using a disposable Urovue digital 16 [place] cystoscope. Meatus normal position Urethra anterior and posterior urethra normal Prostatic Urethra unremarkable Bladder examination with retroflexion of cystoscope Bladder Orifices normal shape and position Bladder Capacity normal Trabeculations grade 2 Cellule Formation Yes No Diverticulum Formation - Mucosal Erythema - Bladder Tumor - [id number] DISPOSABLE SCOPE URO-G FLEXIBLE SCOPE Procedure code (CPT) selection complete Office Meds lidocaine HCl 2 % mucosal jelly in applicator Performing Provider: Balta Pacheco MD [place] [facility] [place] [facility] Administered by: Scott Hope LPN on 06/06/24 15:15 Dose Route Admin Location Dispensed Lot Number Expiration Date [facility] [place] 2[place] Parts Driver 10 mL intra-urethral 10 mL nitrofurantoin monohydrate/macrocrystals 100 mg capsule Performing Provider: Balta Pacheco MD [place]forming [place] [facility] [facility] Administered by: Scott Hope LPN on 06/06/24 15:15 Dose Route Admin Location Dispensed Lot Number Expiration Date [facility] [place] 2[place] Parts Driver 100 mg PO 1 cap naproxen 500 mg tablet Performing Provider: Balta Pacheco MD [place] [facility] [place] [facility] Administered by: Scott Hope LPN on 06/06/24 15:15 Dose Route Admin Location Dispensed Lot Number Expiration Date [employer] Parts Driver 500 mg PO 1 tab Results AMB Urinalysis, Automated UA Leukoctes 0 Rubén/uL Last Edit by Katie Rivas, RMA on 06/06/24 15:15 UA Nitrite Negative Last Edit by Katie Rivas, RMA on 06/06/24 15:15 UA Urobilinogen 0.2 mg/dL Last Edit by Katie Rivas, RMA on 06/06/24 15:1 5 UA Protein 15 mg/dL Last Edit by Katie Rivas, RMA on 06/06/24 15:15 UA pH 7.0 Last Edit by Katie Rivas, RMA on 06/06/24 15:15 UA Blood 0 Bjorn/uL Last Edit by Katie Rivsa, RMA on 06/06/24 15:15 UA Specific [place] 1.015 Last Edit by Katie Rivas, RMA on 06/06/24 15: 15 UA Ketone Negative Last Edit by Katie Rivas, RMA on 06/06/24 15:15 UA Bilirubin 0 mg/dL Last Edit by Katie Rivas, RMA on 06/06/24 15:15 UA Glucose 0 mg/dL Last Edit by Katie Rivas, RMA on 06/06/24 15:15 Results Reviewed Results Reviewed: Laboratory Last Values Urine pH (Auto) 7.0 06/06/24 15:00 Specific [place] (Auto) 1.015 06/06/24 15:00 Urine Protein (Auto) 15 mg/dL 06/06/24 15:00 Glucose (UA)(Auto) 0 mg/dL 06/06/24 15:00 Urine Ketones (Auto) Negative 06/06/24 15:00 Urine Blood (Auto) 0 Bjorn/uL 06/06/24 15:00 Urine Nitrite (Auto) Negative 06/06/24 15:00 Urine Bilirubin (Auto) 0 mg/dL 06/06/24 15:00 Urine Urobilinogen (Auto) 0.2 mg/dL 06/06/24 15:00 Leukocyte Esterase (Auto) 0 Rubén/uL 06/06/24 15:00 Assessment & Plan Assessment & Plan (1) Urinary urgency: Code(s): R39.15 - Urgency of urination Category: Medical (2) Urinary frequency: Code(s): R35.0 - Frequency of micturition Category: Medical (3) Bladder cancer: Code(s): C67.9 - Malignant neoplasm of bladder, unspecified Category: Medical (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 No major barriers to patient understanding were identified. An opportunity to ask questions regarding the treatment plan was provided. All questions were answered. The patient expressed understanding and agreement with the above treatment plan. The patient is aware they should contact our office by phone for worsening of their current condition or the appearance of new urologic symptoms. Compliance is encouraged with any medications and followup testing that is ordered. It is a privilege to participate in the urologic care of your patient. If you have any questions or concerns regarding treatment for the above conditions, or other urologic issues, please do not hesitate to contact me. The office telephone contact is [phone]. This note is constructed using voice recognition software. While every effort has been made to ensure accuracy accounting machine servicer errors may have been included. Yours sincerely, Dr Balta Pacheco MD, DIANA [facility] - Urology Providers of Expert, Compassionate Care for the Genitourinary System Coding Level of Care Code Est Pt Level 3 (12367) Diagnoses Urinary urgency R39.15 Urinary frequency R35.0 Bladder cancer C67.9 Hypotonic neurogenic bladder N31.9 CPT Codes Cystoscopy - CPT: 08875-[id number] ([id number])
== END 2024-06-06 15:53 | disposition home or self-care (01) ==
PROVIDERS: PCP Family Medicine; Visit Provider Urology
DX: R39.15 Urgency of urination (principal); R35.0 Frequency of micturition; C67.9 Malignant neoplasm of bladder, unspecified; N31.9 Neuromuscular dysfunction of bladder, unspecified
CPT/HCPCS: 52000; 99213

== ENCOUNTER 2025-01-31 10:43 | Outpatient (REF) | payer OTHER, SELFPAY ==
--- OUTSIDE RECORDS SUMMARY | 2025-01-31 11:52 | XMS_ITS | Continuity of Care Document ---
Author Name [facility] Organization [facility] Care Team Providers Care Machine Sprayer Name Role Phone [facility] Unavailable Unavailable Problems Combined list of problems [...] [facility] [id number] Diagnos is: ICD-10- CM Z02.89 Encount er for other adminis trative examERI Collins 09/16 [facility] En[facility] [id number] 11/08 [facility] Outpatient Encounter [id number] 11/09 [facility] HEARING AID EXAM BOTH EARS [id number] Diagnos is: ICD-10- CM Z46.1 Encount er for fitting and adjustm ent of hearing aid NORMA HARRIS 11/21 [facility] CONFORMITY EVALUATION [id number] Diagnos is: ICD-10- CM Z46.1 Encount er for fitting and adjustm ent of hearing aid NORMA HARRIS 12/19 [facility] HEARING AID FITTING/CH ECKING [id number] Diagnos is: ICD-10- CM Z46.1 Encount er for fitting and adjustm ent of hearing aid CARLYAnnabelle DANIEL E 01/16 [facility] HEARING AID REPAIR/MOD IFYING [id number] Diagnos is: ICD-10- CM Z46.1 Encount er for fitting and adjustm ent of hearing aid CARLYAnnabelle DANIEL E 02/19 [facility] HEARING AID FITTING/CH ECKING [id number] Diagnos is: ICD-10- CM Z46.1 Encount er for fitting and adjustm ent of hearing aid Annabelle CARROLL 03/20 [facility] HEARING AID CHECK ONE EAR [id number] Diagnos is: ICD-10- CM Z46.1 Encount er for fitting and adjustm ent of hearing aid KATHERIN ALFARO L 04/18 [facility] HEARING AID REPAIR/MOD IFYING [id number] Diagnos is: ICD-10- CM Z46.1 Encount er for fitting and adjustm ent of hearing aid KATHERIN ALFARO L 05/08 [facility] HEARING AID REPAIR/MOD IFYING [id number] Diagnos is: ICD-10- CM Z46.1 Encount er for fitting and adjustm ent of hearing aid Annabelle CARROLL 06/06 [facility] HEARING AID FITTING/CH ECKING [id number] Diagnos is: ICD-10- CM Z46.1 Encount er for fitting and adjustm ent of hearing aid SENIORNORMA Manuel 06/11 [facility] HEARING AID CHECK ONE EAR [id number] 1. Diagnos is: ICD-10- CM Z46.1 Encount er for fitting and adjustm ent of hearing aid DOMINICKATHERIN MONTOYA L 06/26 [facility] HEARING AID REPAIR/MOD IFYING [id number] Diagnos is: ICD-10- CM Z46.1 Encount er for fitting and adjustm ent of hearing aid REJI GALLARDO 12/21 [facility] HEARING AID REPAIR/MOD IFYING [id number] Diagnos is: ICD-10- CM Z46.1 Encount er for fitting and adjustm ent of hearing aid DOMINICKATHERIN L 01/08 [facility]
[2025-01-31 16:04] LABS: Urine Cytology See Pathology rpt
== END 2025-01-31 10:44 | disposition home or self-care (01) ==
LOC: HO.LAB 10:43
PROVIDERS: PCP Family Medicine; Visit Provider Urology
DX: R35.0 Frequency of micturition (principal); C67.9 Malignant neoplasm of bladder, unspecified
CPT/HCPCS: 52000; 81003; 88112

== ENCOUNTER 2025-01-31 10:43 | Outpatient (AMB) | payer OTHER, SELFPAY ==
--- NOTE | 2025-01-31 11:04 | MHC.OFFVIS ---
Intake Visit Reasons: cysto Intake Note: Patient is present for Cystoscopy Urology Medication:NONE Antibiotic Allergy:NONE Blood Thinner:APIXABAN Lot:[id number] Exp:01/18/27 Service Learning Coordinator Required: No Allergies No Known Allergies [No Known Allergies*] Allergy (Verified 01/31/25 11:05) HPI Comments Details: Hernan is a pleasant 77 year old year old male patient of Dr. Panchal. He seen for following urologic conditions - lower urinary tract symptoms - urgency and frequency with incomplete emptying - bladder cancer Six-month cystoscopy check Small lesion left lateral sidewall Review in six-month Lower urinary tract symptoms Prior prostate intervention Urinary urgency frequency with incomplete emptying Had responded well to InterStim placement InterStim interrogated 2019 with indirect sales representative Nonfunctioning generator InterStim Lead and generator replacement 12/01 bladder Bladder cancer - superfical Prior superficial bladder cancer Cystoscopy 11/03 NAD with TURP defect; Cystoscopy with bladder biopsy and fulguration on 12/01; pathology results (Minute fragment of chronically inflamed lamina propria; no urothelium identified; multiple additional levels examined) - 04/03 NAD, 12/03 NAD Now with occasional hematuria Has been on anticoagulation for femoral clot PFSH Medical History DVT (deep venous thrombosis) Glaucoma Hx of bladder cancer Stroke H/O urinary frequency Surgical History Status post insertion of nerve stimulator Hx of cystoscopy History of surgery Social History Patient Tobacco Use Status: Former Tobacco user Review of Systems Const Denies chills and Denies fever(s) Card Reports no additional complaints and Denies syncope Resp Denies cough GI Denies abdominal pain and Denies heartburn Reports as per HPI and Denies change in libido Neuro Denies syncope Psych Denies change in libido Endo Denies change in libido Physical Exam Const General: cooperative, healthy appearing, comfortable and no acute distress Orientation/consciousness: patient oriented x3 HEENT Face and sinus: Yes normal facial exam Mouth: moist mucous membranes Neck Neck: Yes normal visual inspection, Yes full ROM and Yes trachea midline Chest Chest palpation & inspection: normal inspection of the chest Resp Effort & Inspection: normal respiratory effort, able to speak in complete sentences and no respiratory distress GI Inspection: Yes normal to inspection Back/Spine/Pelvis Cervical Spine: normal cervical lordosis Thoracic/Lumbar Spine: thoracic and lumbar spine normal to inspection Skin General skin exam: no rashes or lesions noted Neuro General: patient oriented x3, gait normal, tone normal and moves all extremities Extrem General: Yes normal to inspection and Yes capillary refill normal Office Procedures Cystoscopy Consent Discussed risk and benefit or proposed procedure with the patient. Information consent for procedure given to the patient. Discussed technical aspects, risks, benefits and alternatives in full. Addressed all of the patient's questions and concerns regarding the procedure. The patient demonstrated knowledge and understanding. They wish to proceed with this procedure. Preparation The patient was prepped in the usual manner. A lumber planer was present and in the room. Genitalia was prepped with betadine solution in a sterile manner. Lidocaine Jelly 2% was placed into the urethra and 16Fr flexible Olympus cystoscope was inserted into the meatus after adequate lubrication. Procedure Cystoscopy performed using a disposable Urovue digital 16 [place] cystoscope. Meatus uncircumcised Urethra anterior and posterior urethra normal Prostatic Urethra TURP defect Bladder examination with retroflexion of cystoscope Bladder Orifices normal shape and position Bladder Capacity Normal Trabeculations grade 2 Cellule Formation None Diverticulum Formation None Mucosal Erythema slight erythema particularly left sidewall upper Bladder Tumor None [id number] DISPOSABLE SCOPE URO-G FLEXIBLE SCOPE Procedure code (CPT) selection complete Office Meds lidocaine HCl 2 % mucosal jelly in applicator Performing Provider: Balta Pacheco MD [place] [facility] [place] [facility] Administered by: Scott Hope LPN on 01/31/25 11:28 Dose Route Admin Location Dispensed Lot Number Expiration Date [facility] Cushion Assembler 10 mL intra-urethral 10 mL nitrofurantoin monohydrate/macrocrystals 100 mg capsule Performing Provider: Balta Pacheco MD [place] [facility] [place] [facility] Administered by: Scott Hope LPN on 01/31/25 11:28 Dose Route Admin Location Dispensed Lot Number Expiration Date [place] Cushion Assembler 100 mg PO 1 cap Results AMB Urinalysis, Automated UA Leukoctes 15 Rubén/uL Last Edit by BRIDGET Gordon on 01/31/25 11:36 UA Nitrite Negative Last Edit by BRIDGET Gordon on 01/31/25 11:36 UA Urobilinogen 17 mg/dL Last Edit by Catrachito Crocker [facility] on 01/31/25 11:36 UA Protein 3 mg/dL Last Edit by Catrachito Crocker [facility] on 01/31/25 11:36 UA pH 6.0 Last Edit by Catrachito Crocker [facility] on 01/31/25 11:36 UA Blood 200 Bjorn/uL Last Edit by Catrachito Crocker [facility] on 01/31/25 11:36 UA Specific [place] 1.020 Last Edit by Catrachito Crocker [facility] on 01/31/25 11:36 UA Ketone Negative Last Edit by Catrachito Crocker [facility] on 01/31/25 11:36 UA Bilirubin 0 mg/dL Last Edit by Catrachito Crocker [facility] on 01/31/25 11:36 UA Glucose 5 mg/dL Last Edit by Catrachito Crocker [facility] on 01/31/25 11:36 Assessment & Plan Assessment & Plan (1) Urinary frequency: Code(s): R35.0 - Frequency of micturition Category: Medical (2) Microscopic hematuria: Code(s): R31.29 - Other microscopic hematuria Category: Medical (3) Bladder cancer: Code(s): C67.9 - Malignant neoplasm of bladder, unspecified Category: Medical (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 While every effort has been made to ensure accuracy political analyst errors may have been included. Imaging studies, laboratory and physical exam results were discussed and reviewed in detail. No major barriers to patient understanding were identified. An opportunity to ask questions regarding the treatment plan was provided. All questions were answered. The patient expressed understanding and agreement with the above treatment plan. The patient is aware they should contact our office by phone for worsening of their current condition or the appearance of new urologic symptoms. Compliance is encouraged with any medications and followup testing that is ordered. It is a privilege to participate in the urologic care of your patient. If you have any questions or concerns regarding treatment for the above conditions, or other urologic issues, please do not hesitate to contact me. The office telephone contact is [phone]. Sincerely, Dr Balta Pacheco MD, DIANA [facility] - Urology Compassionate Specialist Care for the Genitourinary System Coding Level of Care Code Est Pt Level 3 (75197) Diagnoses Urinary frequency R35.0 Microscopic hematuria R31.29 Bladder cancer C67.9 Hypotonic neurogenic bladder N31.9 CPT Codes Cystoscopy - CPT: [id number] ([id number])
--- OUTSIDE RECORDS SUMMARY | 2025-01-31 11:24 | XMS_ITS ---
Author Organization [facility] [place] Address [address] [place] [address] Care Team Providers Care Scale And Skip Car Operator Name Role Phone Stu Panchal M.D Primary Care Provider Tiarra Ruelas Unavailable [phone] REASON FOR VISIT Seen Sooner Medications Medication SIG (Take, Route, Frequency, Duration) Notes Start Date End Date Status Latanoprost 0.005 % 1 drop into affected eye in the evening Ophthalmic Once a day Active Brimonidine Tartrate 0.2 % 1 drop into a ffected eye Ophthalmic every 8 hrs Active Dorzolamide HCl-Timolol Mal 2-0.5 % 1 drop into affected eye Ophthalmic Twice a day Active prednisoLONE Active Eliquis 5 MG as directed Orally Active Social History Tobacco Use: Social History Observation Description Date Details (start date - stop date) Never Smoker NA - NA Tobacco use other than smoking: Question Answer Notes Are you an other tobacco user? No Tobacco Control (Standard) Question Answer Notes Tobacco use: Nonsmoker Additional Findings: Tobacco non-user Current no nsmoker AUDIT-C (Standard) Question Answer Notes Did you have a drink contain ing alcohol in the past year? Yes How often did you have a dri nk containing alcohol in the past year? Declined to specify (0 point) How many drinks did you have on a typical day when you were drinking in the past year? Declined to specify (0 point) How often did you have six o r more drinks on one occasion in the past year? Declined to specify (0 point) Points 0 Interpretation Negative Encounters Encounter Location Date Provider Diagnosis [facility] [place] [address] [place] [address] 01/01/2025 Tiarra Cristobal Plan Of Treatment Next Appt Details Provider Name:Tiarra cedeño, 02/12/2025 01:30:00 PM, [address] [facility] [facility], [facility] [place], [id number], Progress Notes * Jazmin COATESOB: 3 (79 yo M)Acc No.[id number]:01/01/2025 Progress Notes Patient:?Hernan COATES Provider:?Tiarra Cristobal DPM :1945???Age:79 Y???Sex:Male Mal e:01/01/2025 Address:[address] [place] [address] [id number] Pcp:Stu Panchal M.D Subjective: * Chief Complaints: * ???1. Seen Sooner. * ROS:?General/Constitutional:?Nausea?denies.?Vomiting?denies.?Hunger Thirst?denies.?Loss appetite?denies.?Chills?denies.?Fatigue?denies.?Fever?denies.?Night Sweats?denies.?Unexplained weight loss?denies.?Unexplained weight gain?denies.?HEENTM:?Dentures?denies.?Dizziness?denies.?Glasses/contacts?admits.?Retinopathy?de nies.?Blurred/double vision?denies.?TMJ?denies.?Discharge/drainage?denies.?Implants?denies.?Sore throat?denies.?Dental implants?denies.?Hard of hearing ?admits.?Difficulty chewing/swallowing/speaking?denies.?Nose bleeds?denies.?Sore mouth?denies.?Respiratory:?On Oxygen?denies.?Pneumonia/pleurisy?denies.?Bronchitis?denies.?Emphysema?denies.?C oughing?denies.?Cough blood?denies.?Shortness of breath?denies.?Wheezing?denies.?Cardiovascular:?Pacemaker?denies.?MVP?denies.?WPW?denies.?CHF?denies.?Heart attack?denies.?Septal defect?denies.?Rapid beat?denies.?Chest pain ?denies.?Atrial Fib.?denies.?Murmur/Palpitations?denies.?Gastrointestinal:?Hemorrhoids?denies.?Stomach/Abdominal pain?denies.?Dark blood stool?denies.?Irritable bowel ?denies.?Constipation?admits.?Diarrhea?denies.?Hematology:?Swelling?denies.?Clots?Admits.?Varicose Veins?denies.?Bruising?denies.?Bleeding problem?denies.?Genitourinary:?Blood urine?denies.?Frequent/Painfu/urination/bladder control?admits.?Kidney stones?denies.?Infection (UTI)?denies.?Nephropathy?denies.?sex trans dis (STD)?denies.?Prostate?denies.?Musculoskeletal:?Hammertoes?denies.?Bunions?denies.?Back Pain?admits.?Muscle Cramps/ Resting?denies.?Muscle cramps / walking?denies.?Generalized aches and pains?admits.?Weakness?denies.?Integ.:?Ornelas?denies.?Scars?denies.?Corns/calluses?admits.?Ingrown nails?denies.?Painful nails?denies.?Open Sores?denies.?Rashes?denies.?Neurologic:?Difficulty sleeping?denies.?Brain disorder?denies.?Numbness?denies.?Balance trouble?denies.?Confusion?denies.?Fainting/blackouts?denies.?Tingling?denies.?Tr emors?denies.? * Medical History:?Arthritis, Back,Hip,and Knee pain, Cataracts, Measles, Mumps, Chicken pox, Joint implants/screws, Blood clots, Stroke, IC. * Surgical History:?RTS R 12/03 , LTS R , STENT , Bladder cysts . * Family History:?Mother: dece ased, diagnosed with Family history of arthritis.?Father: .? * Social History:?Tobacco Use:?Tobacco use other than smoking?Are you an other tobacco user??No ?Tobacco Control (Standard)?Tobacco use:?Nonsmoker ?Additional Findings: Tobacco non-user?Current nonsmoker ???Drugs/Alcohol:?Drugs?Have you used drugs other than those for medical reasons in the past 12 months??No ???Miscellaneous:?Caffeine: yes, frequency:, 1-2 cups per day. ?Marital status: . ?Occupation: Retired- [employer]. ???Drug/Alcohol:?AUDIT-C (Standard)?Did you have a drink containing alcohol in the past year??Yes ?How often did you have a drink containing alcohol in the past year??Declined to specify (0 point) ?How many drinks did you have on a typical day when you were drinking in the past year??Declined to specify (0 point) ?How often did you have six or more drinks on one occasion in the past year??Declined to specify (0 point) ?Points?0 ?Interpretation?Negative * Medications:?Taking Latanopr ost 0.005 % Solution 1 drop into affected eye in the evening Ophthalmic Once a day , Taking Brimonidine Tartrate 0.2 % Solution 1 drop into affected eye Ophthalmic every 8 hrs , Taking Dorzolamide HCl-Timolol Mal 2- 0.5 % Solution 1 drop into affected eye Ophthalmic Twice a day , Taking prednisoLONE , Taking Eliquis 5 MG Tablet as directed Orally Objective: * Vitals:? Assessment: Plan: * Treatment: * Images: * The named appointment provid er may or may not be the originator of this progress note, and it is not deemed complete until electronically signed by the appointment provider. Sign off status: Pending * Provider:?Tiarra Cristobal DPM Date:? Generated for Nicolás schmidt/Maria G/Lou on:?01/31/2025 11:24 AM EDT
--- OUTSIDE RECORDS SUMMARY | 2025-01-31 11:24 | XMS_ITS | Encounter Summary ---
Author Name [facility] [place] Organization [facility] [place] [facility] [place] Address [address] [place] [id number] Support Name Relationship Address Phone DINA COATES Next of Kin Unknown Unavailable DINA COATES Emergency Contact [address] [place] [address] Insurance Providers: All historical and current Section Date Range: From patient's date of to the date document was created. This section includes the names of all active insurance providers for the patient. Insurance Provider Type of Coverage Plan Name Start of Policy Coverage End of Policy Coverage Group Number Member ID Insurance Provider's Telephone Number Policy Dior's Name Patient's Relationship to Policy Dior [facility] Mar 12, 2013 [facility] [id number] Baron COATES PATIENT CAREMARK PRESCRIPT ION [facility] Sep 12, 2006 [facility] [id number] Baron COATESIEL PATIENT [employer] (OPT/PROF ) [facility] IN[facility] N Sep 12, 2006 [id number] Baron COATESIEL PATIENT Selected Encounter This section includes the information on record at [place] for the Encounter. Date/Time Encounter Type Encounter Description Reason Provider Source Dec 21, 2024 11:00 AM HEARING AID REPAIR/MODIFYIN G AUDIOLOGY ICD-10-CM Z46.1 Encounter for fitting and adjustment of hearing aid BIRDIE GALLARDO Michaela Encounter Template Text not used by [place] Assessments - Encounter Diagnoses This section includes the primary and secondary diagnoses documented for the Encounter. Date/Time Primary/Secondary Diagnosis Diagnosis Name Provider Source Dec 21, 2024 11:28 AM PRIMARY Encounter for fitting and adjustment of hearing aid BIRDIE GALLARDO [facility] Dec 21, 2024 11:28 AM SECONDARY Mix cndct/snrl hear loss,uni,l ear w rstrcd hear cntra side BIRDIE [facility]O [facility] Dec 21, 2024 11:28 AM SECONDARY Snsrnrl hear loss, uni, r ear, with rstrcd hear cntra side [facility] Plan of Treatment: Future Appointments (+ 6 months) and Future Tests (+/- 45 days) The Plan of Treatment section includes future care activities for the patient from all [place] treatmentfacilities. This section includes future appointments and future orders which are active, pending or scheduled. Future Appointments This section includes appointments that were scheduled to occur 6 months from the date of the Encounter, up to a maximum of 20 appointments. The data comes from all [place] treatment facilities. Appointment Date/Time Appointment Type Appointme nt Facility Name Jan 08, 2025 10:00 AM AMBULATORY - REHAB MEDICIN E [facility] Encounter Notes: All associated encounter notes This section contains the clinical notes associated to the Encounter. Date/Time Encounter Note(s) Provider Source Jan 03, 2025 09:00 AM ADDENDUM: LOCAL TITLE: Addendum STANDARD TITLE: ADDENDUM DATE OF NOTE: JAN 03, 2025@09:00:50 ENTRY DATE: JAN 03, 2025@09:00:50 AUTHOR: RADHA CHUNG COSIGNER: URGENCY: STATUS: COMPLETED Earmolds received and certified. 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 RTC entered. Earmolds placed in the black cabinet. /elissa/ RADHA CHUNG Audiology Health Rail Manager Signed: 01/03/2025 09:01 Receipt Acknowledged By: 01/03/2025 09:12 /elissa/ EUSEBIA MATHIAS ADVANCED WELDER FITTER ARC --- Original Document --- 12/21/24 AUDIOLOGY CLINIC: Dx CODE: Z46.1-Encounter for Fitting/Adjusting Hearing Aid(s); H90.L15-Jrhgy Hearing Loss, Left Ear;H90.B61-Egishxzupbgpy Hearing Loss, Right Ear APPOINTMENT TYPE: Hearing Aid Programming HISTORY/BACKGROUND: The patient was seen for a hearing aid follow-up appointment, unaccompanied. He was fit with Phonak Audeo L90-RL RICs on 12/20/23. He reports his left earmold wax guard retainer is broken and his right hearing aid is weak. HEARING AID CHECK: The hearing aids were cleaned and checked. Microphone ports suctioned. Listening inspection revealed the left aid was working well, however the right hearing aid was very weak. Troubleshooting determined the right aid to have a defective funeral pre arrangement specialist. A new left and right cShell earmold were ordered using impression on file. PLAN/RECOMMENDATION(S): 1. When earmolds arrive, can be scheduled for a 30 minute HAC or HT appointment. Patient Education Education provided on the following topics: Hearing aids Education provided to: P Response to Education: CRISTHIAN Garvey Patient P Family F Significant Other SO Verbalizes Understanding VU Returns Demonstration RD Performs Independently PI Lacks Comprehension LC Refused Education RE Not Applicable NA /leissa/ BIRDIE GALLARDO STAFF BACK SEWER Signed: 12/21/2024 11:28 RADHA CHUNG [place] [facility] [place] [facility] Dec 21, 2024 08:53 AM AUDIOLOGY E & M NOTE: LOCAL TITLE: AUDIOLOGY CLINIC STANDARD TITLE: AUDIOLOGY E & M NOTE DATE OF NOTE: DEC 21, 2024@08:53 ENTRY DATE: DEC 21, 2024@08:53:08 AUTHOR: BIRDIE GALLARDO COSIGNER: URGENCY: STATUS: COMPLETED AUDIOLOGY CLINIC Has ADDENDA Dx CODE: Z46.1-Encounter for Fitting/Adjusting Hearing Aid(s); H90.N88-Tpqbj Hearing Loss, Left Ear;H90.C97-Mfoxnvsapgpnq Hearing Loss, Right Ear APPOINTMENT TYPE: Hearing Aid Programming HISTORY/BACKGROUND: The patient was seen for a hearing aid follow-up appointment, unaccompanied. He was fit with Phonak Audeo L90-RL RICs on 12/20/23. He reports his left earmold wax guard retainer is broken and his right hearing aid is weak. HEARING AID CHECK: The hearing aids were cleaned and checked. Microphone ports suctioned. Listening inspection revealed the left aid was working well, however the right hearing aid was very weak. Troubleshooting determined the right aid to have a defective funeral pre arrangement specialist. A new left and right cShell earmold were ordered using impression on file. PLAN/RECOMMENDATION(S): 1. When earmolds arrive, can be scheduled for a 30 minute HAC or HT appointment. Patient Education Education provided on the following topics: Hearing aids Education provided to: P Response to Education: VU Garvey Patient P Family F Significant Other SO Verbalizes Understanding VU Returns Demonstration RD Performs Independently PI Lacks Comprehension LC Refused Education RE Not Applicable NA /elissa/ BIRDIE GALLARDO STAFF BACK SEWER Signed: 12/21/2024 11:28 01/03/2025 ADDENDUM STATUS: COMPLETED Earmolds received and certified. 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 RTC entered. Earmolds placed in the black cabinet. /elissa/ RADHA CHUNG Audiology Health Rail Manager Signed: 01/03/2025 09:01 Receipt Acknowledged By: * AWAITING SIGNATURE * EUSEBIA MATHIAS,BIRDIE FAIRCHILD CNTRL W[facility]N [facility]
--- OUTSIDE RECORDS SUMMARY | 2025-01-31 11:24 | XMS_ITS ---
Author Name Department [place] Organization [place] Address [address] [place] [id number] Support Name Relationship Address Phone DINA COATES Next of Kin Unknown Unavailable DINA COATES Emergency Contact [address] [place] [address] Insurance Providers: All historical and current Section Date Range: From patient's date of to the date document was created. This section includes the names of all active insurance providers for the patient. Insurance Provider Type of Coverage Plan Name Start of Policy Coverage End of Policy Coverage Group Number Member ID Insurance Provider's Telephone Number Policy Dior's Name Patient's Relationship to Policy Dior [facility] Mar 12, 2013 [facility] [id number] Baron COATES PATIENT CAREMARK PRESCRIPT ION [facility] Sep 12, 2006 [facility] [id number] Baron COATES PATIENT [employer] (OPT/PROF ) [facility] IN[facility] N Sep 12, 2006 [id number] Baron COATESIEL PATIENT Selected Encounter This section includes the information on record at [place] for the Encounter. Date/Time Encounter Type Encounter Description Reason Provider Source May 08, 2024 08:30 AM HEARING AID REPAIR/MODIFYING AUDIOLOGY ICD-10-CM Z46.1 Encounter for fitting and adjustment of hearing aid VIK ALFARO Encounter Template Text not used by [place] Assessments - Encounter Diagnoses This section includes the primary and secondary diagnoses documented for the Encounter. Date/Time Primary/Secondary Diagnosis Diagnosis Name Provider Source May 08, 2024 08:33 AM PRIMARY Encounter for fitting and adjustment of hearing aid RADHA CHUNG [facility] [place] [place] [facility] May 08, 2024 08:33 AM SECONDARY Mix cndct/snrl hear loss,uni,l ear w rstrcd hear cntra side RADHA CHUNG [place] [facility] May 08, 2024 08:33 AM SECONDARY Snsrnrl hear loss, uni, r ear, with rstrcd hear cntra side RADHA CHUN[facility] Plan of Treatment: Future Appointments (+ 6 months) and Future Tests (+/- 45 days) The Plan of Treatment section includes future care activities for the patient from all [place] treatmentfacilities. This section includes future appointments and future orders which are active, pending or scheduled. Future Appointments This section includes appointments that were scheduled to occur 6 months from the date of the Encounter, up to a maximum of 20 appointments. The data comes from all [place] treatment facilities. Appointment Date/Time Appointment Type Appointme nt Facility Name Jun 06, 2024 08:00 AM AMBULATORY - REHAB MEDICIN E [facility] [place] [facility] Jun 11, 2024 08:30 AM AMBULATORY - REHAB MEDICIN E [facility] [facility] Jun 26, 2024 02:00 PM AMBULATORY - [facility] E [facility] Encounter Notes: All associated encounter notes This section contains the clinical notes associated to the Encounter. Date/Time Encounter Note(s) Provider Source May 08, 2024 07:35 AM AUDIOLOGY NOTE: LOCAL TITLE: AUDIOLOGY HEALTH FLAT BREAKDOWN PROCESSOR STANDARD TITLE: AUDIOLOGY NOTE DATE OF NOTE: MAY 08, 2024@07:35 ENTRY DATE: MAY 08, 2024@07:35:30 AUTHOR: RADHA CHUNG EXP COSIGNER: VIK ALFARO URGENCY: STATUS: COMPLETED May 08, 2024 History/Background: Ecorse was seen for a hearing aid follow up, unaccompanied. was scheduled today to pick up operator his right hearing aid and new canal lock Cshell earmold. Hearing aids: Phonak AUDEO L90-RL RICs Serial Numbers: [id number] Battery size: Rechargeable Date Issued: 12/20/2023 Hearing aid check: Left hearing aid was cleaned and checked. Replaced left wax guard. Biologic check was good. Listening inspection revealed hearing aids were synced. Ecorse reported good secure fit with new canal lock earmold. Plan: Ecorse will follow up as needed. /elissa/ RADHA CHUNG Audiology Health Fire Prevention Forester Signed: 05/08/2024 08:34 /elissa/ VIK Garza, ERUM-A CHIEF, AUDIOLOGY/WEB SITE SPECIALIST Cosigned: 05/08/2024 08:58 RADHA CHUNG [place] [facility] TRN [facility]
--- OUTSIDE RECORDS SUMMARY | 2025-01-31 11:24 | XMS_ITS | Encounter Summary ---
Author Name [place] Organization [place] Address [address] [place] [id number] Support Name Relationship Address Phone DINA COATES Next of Kin Unknown Unavailable DINA COATES Emergency Contact [address] [place] [address] Insurance Providers: All historical and current Section Date Range: From patient's date of to the date document was created. This section includes the names of all active insurance providers for the patient. Insurance Provider Type of Coverage Plan Name Start of Policy Coverage End of Policy Coverage Group Number Member ID Insurance Provider's Telephone Number Policy Dior's Name Patient's Relationship to Policy Dior [facility] Mar 12, 2013 [facility] [id number] Baron COATES PATIENT CAREMARK PRESCRIPT ION [facility] Sep 12, 2006 GI[facility]X [id number] Baron COATES PATIENT [employer] (OPT/PROF ) [facility] INDEM N Sep 12, 2006 [id number] Baron COATESIEL PATIENT Selected Encounter This section includes the information on record at [place] for the Encounter. Date/Time Encounter Type Encounter Description Reason Provider Source Feb 20, 2024 07:00 AM HEARING AID REPAIR/MODIFYIN G AUDIOLOGY ICD-10-CM Z46.1 Encounter for fitting and adjustment of hearing aid VINCENT CARROLL Michaela Encounter Template Text not used by [place] Assessments - Encounter Diagnoses This section includes the primary and secondary diagnoses documented for the Encounter. Date/Time Primary/Secondary Diagnosis Diagnosis Name Provider Source Feb 20, 2024 07:31 AM PRIMARY Encounter for fitting and adjustment of hearing aid VINCENT CARROLL [facility] Feb 20, 2024 07:31 AM SECONDARY Sensorineural hearing loss, bilateral VINCENT CARROLL [place] [facility] [place] [facility] Plan of Treatment: Future Appointments (+ 6 months) and Future Tests (+/- 45 days) The Plan of Treatment section includes future care activities for the patient from all [place] [facility]. This section includes future appointments and future orders which are active, pending or scheduled. Future Appointments This section includes appointments that were scheduled to occur 6 months from the date of the Encounter, up to a maximum of 20 appointments. The data comes from all [place] treatment facilities. Appointment Date/Time Appointment Type Appointme nt Facility Name Mar 20, 2024 09:00 AM AMBULATORY - REHAB MEDICIN E [facility] [place] [facility] Apr 18, 2024 08:30 AM AMBULATORY - REHAB MEDICIN E [facility] [place] [facility] May 08, 2024 08:30 AM AMBULATORY - REHAB MEDICIN E [facility] [place] [facility] Jun 06, 2024 08:00 AM AMBULATORY - REHAB MEDICIN E [facility] [facility] Jun 11, 2024 08:30 AM AMBULATORY - REHAB MEDICIN E [facility] [place] [facility] Jun 26, 2024 02:00 PM AMBULATORY - REHAB MEDICIN E [facility] [facility] Encounter Notes: All associated encounter notes This section contains the clinical notes associated to the Encounter. Date/Time Encounter Note(s) Provider Source Feb 20, 2024 06:49 AM AUDIOLOGY E & M NO TE: [facility] TITLE: AUDIOLOGY CLINIC STANDARD TITLE: AUDIOLOGY E & M NOTE DATE OF NOTE: FEB 20, 2024@06:49 ENTRY DATE: FEB 20, 2024@06:49:06 AUTHOR: VINCENT CARROLL EXP COSIGNER: URGENCY: STATUS: COMPLETED has a history of bilateral sensorineural hearing loss. He was seen on 02-20-24 for hearing aid follow up regarding his Phonak GIULIANA Rs. He reports they are not working. Initial check confirms aids are . Wax guards were replaced and the sound check was then positive for both. Counseled on wax guard replacement. Otoscopy revealed a small amount of cerumen AU. will contact the clinic as needed. Suicide Screen: C-SSRS Screening [place]-Suicide Severity Rating Scale (C-SSRS Screener) 1. Over the past month, have you wished you were or wished you could go to sleep and not wake up? No 2. Over the past month, have you had any actual thoughts of killing yourself? No 3. Over the past month, have you been thinking about how you might do this? Response not required due to responses to other questions. 4. Over the past month, have you had these thoughts and had some intention of acting on them? Response not required due to responses to other questions. 5. Over the past month, have you started to work out or worked out the details of how to kill yourself? Response not required due to responses to other questions. 6. If yes, at any time in the past month did you intend to carry out this plan? Response not required due to responses to other questions. 7. In your lifetime, have you ever done anything, started to do anything, or prepared to do anything to end your life (for example, collected pills, obtained a gun, gave away valuables, went to the roof but didn't jump)? No 8. If YES, was this within the past 3 months? Response not required due to responses to other questions. /Vern Kat, [facility] STAFF INFORMATION ASSOC Signed: 02/20/2024 07:41 VINCENT CARROLL CNTRL [facility]
--- OUTSIDE RECORDS SUMMARY | 2025-01-31 11:24 | XMS_ITS | Encounter Summary ---
Author Name [place] Organization [place] Address [address] [place] [id number] Support Name Relationship Address Phone DINA COATES Next of Kin Unknown Unavailable DINA COATES Emergency Contact [address] [place] [address] Insurance Providers: All historical and current Section Date Range: From patient's date of to the date document was created. This section includes the names of all active insurance providers for the patient. Insurance Provider Type of Coverage Plan Name Start of Policy Coverage End of Policy Coverage Group Number Member ID Insurance Provider's Telephone Number Policy Dior's Name Patient's Relationship to Policy Dior [facility] Mar 12, 2013 [facility] [id number] Baron COATES PATIENT CAREMARK PRESCRIPT ION [facility] Sep 12, 2006 GI[facility]X [id number] Baron COATES PATIENT [employer] EXP[employer] (OPT/PROF ) [facility] IN[facility] N Sep 12, 2006 [id number] 25 Baron COATES PATIENT Selected Encounter This section includes the information on record at [place] for the Encounter. Date/Time Encounter Type Encounter Description Reason Provider Source Mar 20, 2024 09:00 AM HEARING AID FITTING/CHECKIN G AUDIOLOGY ICD-10-CM Z46.1 Encounter for fitting and adjustment of hearing aid VINCENT CARROLL Michaela Encounter Template Text not used by [place] Assessments - Encounter Diagnoses This section includes the primary and secondary diagnoses documented for the Encounter. Date/Time Primary/Secondary Diagnosis Diagnosis Name Provider Source Mar 20, 2024 09:08 AM PRIMARY Encounter for fitting and adjustment of hearing aid VINCENT CARROLL [facility] Mar 20, 2024 09:08 AM SECONDARY Sensorineural hearing loss, bilateral VINCENT CARROLL [facility] Plan of Treatment: Future Appointments (+ 6 months) and Future Tests (+/- 45 days) The Plan of Treatment section includes future care activities for the patient from all [place] [facility]. This section includes future appointments and future orders which are active, pending or scheduled. Future Appointments This section includes appointments that were scheduled to occur 6 months from the date of the Encounter, up to a maximum of 20 appointments. The data comes from all [place] treatment facilities. Appointment Date/Time Appointment Type Appointme nt Facility Name Apr 18, 2024 08:30 AM AMBULAT[facility] May 08, 2024 08:30 AM AMBULATORY - REHAB MEDICIN E [facility] [place] [facility] Jun 06, 2024 08:00 AM AMBULATORY - [facility] MED[facility] E [facility] [place] [facility] Jun 11, 2024 08:30 AM AMBULATORY - [facility] MEDICIN E [facility] [place] [facility] Jun 26, 2024 02:00 PM AMBULATORY - REHAB MEDICIN E [facility] Encounter Notes: All associated encounter notes This section contains the clinical notes associated to the Encounter. Date/Time Encounter Note(s) Provider Source Mar 20, 2024 07:54 AM AUDIOLOGY E & M NO TE: LOCAL TITLE: AUDIOLOGY CLINIC STANDARD TITLE: AUDIOLOGY E & M NOTE DATE OF NOTE: MAR 20, 2024@07:54 ENTRY DATE: MAR 20, 2024@07:54:35 AUTHOR: VINCENT CARROLL EXP COSIGNER: URGENCY: STATUS: COMPLETED [place] has a history of bilateral sensorineural hearing loss. He was seen on 03-20-24 for hearing aid follow up regarding his Phonak GIULIANA Rs. He requests that the start-up tone be turned up. Also, he states he hears 'time to go to bed' at about 10:30 and would like that turned off. Connected both aids to [employer] and performed a hearing aid update. Increased volume of the indicators from loud to very loud. Explained this is the loudest setting. When asked if the aids are still paired to his phone, he states he has been having issues with his phone and smart watch so he is not sure. When connected, the settings say 'not paired to phone' so it is unclear what is causing him to hear 'time to go to bed'. Explained the hearing aids do not have this feature. will contact the clinic as needed. /elissa/ Vern DOSHI, [facility]-A STAFF LAP HAND TOOL Signed: 03/20/2024 09:22 VINCENT CARROLL [facility]L [facility]
--- OUTSIDE RECORDS SUMMARY | 2025-01-31 11:24 | XMS_ITS ---
Author Organization [facility] scott PalaciosWaldo Address [address] [facility] [place] [address] Care Team Providers Care Supervisor Hand Silvering Name Role Phone Stu Panchal M.D Primary Care Provider Tiarra Ruelas Unavailable [phone] Allergies No Known Allergies REASON FOR VISIT Foot pain, Painful nail(s) aggravated by shoes causing difficulty standing/walking Medications Medication SIG (Take, Route, Frequency, Duration) Notes Start Date End Date Status Latanoprost 0.005 % 1 drop into affected eye in the evening Ophthalmic Once a day Active Brimonidine Tartrate 0.2 % 1 drop into a ffected eye Ophthalmic every 8 hrs Active Dorzolamide HCl-Timolol Mal 2-0.5 % 1 drop into affected eye Ophthalmic Twice a day Active prednisoLONE Acetate 1 % 1 drop into aff ected eye Ophthalmic Twice a day Active Eliquis 5 MG as directed Orally Active Social History Tobacco Use: Social History Observation Description Date Details (start date - stop date) Never Smoker NA - NA Tobacco use other than smoking: Question Answer Notes Are you an other tobacco user? 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 Vital Signs Height 5 ft 10 in in 11/27/2024 Weight 198 lbs 11/27/2024 BMI 28.41 kg/m2 11/27/2024 Blood pressure systolic 129 mm Hg 11/28/19 25 Blood pressure diastolic 73 mm Hg 025 Encounters Encounter Location Date Provider Diagnosis [facility] [address] [address] 11/27/2024 Tiarra Cristobal Pain in right foot M79.671 ; Moreira's neuroma of right foot G57.61 ; Onychomycosis B35.1 ; Pain in left toe(s) M79.675 and Metatarsalgia, right foot M77.41 Assessments Encounter Date Diagnosis (ICD Code) Assessment Notes Treatment Notes Treatment Clinical Notes Section Notes 11/27/2024 Pain in right foot (ICD-10 - M79.671) 11/27/2024 Moreira's neuroma of right foot (ICD-10 - G57.61) 11/27/2024 Onychomycosis (ICD-10 - B35.1) 11/27/2024 Pain in left toe(s) (ICD-10 - M79.675) 11/27/2024 Metatarsalgia, right foot (ICD-10 - M77.41) Plan Of Treatment Pending Test Test Name Order Date X ray : Foot, right 3V 11/27/2024 Next Appt Details Follow Up: 2 Months, Reason: Provider Name:Tiarra cedeño, 02/12/2025 01:30:00 PM, [address] [place] [address], [id number], Procedure Notes * Category Sub-Category Detail Notes Debride Nails 1-5 Procedure: Due to the cli nical pathology outlined in the exam findings, performance of this nail treatment is medically necessary as its management by an unskilled/untrained nonprofessional would put this patients foot and overall health at risk. Therefore, debridement to affected nail(s), as described in exam ( TA ), was performed exclusively by the physician of record to reduce/remove overall nail length, girth, thickness, subungual debris, and necrotic tissue, by manual and/or electrical means through the use of a nail nipper and/or dremel stylegrinder, to a more viable healthy nail plate or bed tissue 5 nails or fewer in number. Silver nitrate was used for any petechial bleeding as necessary. Definitive antifungal treatment options, both pharmaceutical and surgical, have been reviewed and discussed with the patient. The patient solely prefers the use of intermittent/as needed professional debridement services for their nail condition and understands that additional periodic treatments may be required as necessary to maintain effective symptomatic relief - 61097 Progress Notes * Jazmin COATESOB: 3 (79 yo M)Acc No.[id number]:11/27/2024 Progress Notes Patient:?Hernan COATES Provider:?Tiarra Cristobal DPM :1945???Age:79 Y???Sex:Male Mal e:11/27/2024 Address:[address] [place] [address], [id number] Pcp:Stu Panchal M.D Subjective: * Chief Complaints: * ???Foot painPainful nail(s) aggravated by shoes causing difficulty standing/walking * HPI: ???Foot Pain:?Nature:?feels like an extra pad on his foot.?Location:?Forefoot, RIGHT.?Duration:?, several months.?Onset:?unknown, gradual, denies trauma.?Course:?worse.?Aggravated:?any pressure.?Treatments:?rest/alter normal daily activity.?Painful Nails:?Pt States Last PCP Visit:?Date:?10/15/2024 * ROS:?General/Constitutional:?Nausea?denies.?Vomiting?denies.?Hunger Thirst?denies.?Loss appetite?denies.?Chills?denies.?Fatigue?denies.?Fever?denies.?Night Sweats?denies.?Unexplained weight loss?denies.?Unexplained weight gain?denies.?HEENTM:?Dentures?denies.?Dizziness?denies.?Glasses/contacts?admits.?Retinopathy?de nies.?Blurred/double vision?denies.?TMJ?denies.?Discharge/drainage?denies.?Implants?denies.?Sore throat?denies.?Dental implants?denies.?Hard of hearing ?admits.?Difficulty chewing/swallowing/speaking?denies.?Nose bleeds?denies.?Sore mouth?denies.?Respiratory:?On Oxygen?denies.?Pneumonia/pleurisy?denies.?Bronchitis?denies.?Emphysema?denies.?C oughing?denies.?Cough blood?denies.?Shortness of breath?denies.?Wheezing?denies.?Cardiovascular:?Pacemaker?denies.?MVP?denies.?WPW?denies.?CHF?denies.?Heart attack?denies.?Septal defect?denies.?Rapid beat?denies.?Chest pain ?denies.?Atrial Fib.?denies.?Murmur/Palpitations?denies.?Gastrointestinal:?Hemorrhoids?denies.?Stomach/Abdominal pain?denies.?Dark blood stool?denies.?Irritable bowel ?denies.?Constipation?admits.?Diarrhea?denies.?Hematology:?Swelling?denies.?Clots?Admits.?Varicose Veins?denies.?Bruising?denies.?Bleeding problem?denies.?Genitourinary:?Blood urine?denies.?Frequent/Painfu/urination/bladder control?admits.?Kidney stones?denies.?Infection (UTI)?denies.?Nephropathy?denies.?sex trans dis (STD)?denies.?Prostate?denies.?Musculoskeletal:?Hammertoes?denies.?Bunions?denies.?Back Pain?admits.?Muscle Cramps/ Resting?denies.?Muscle cramps / walking?denies.?Generalized aches and pains?admits.?Weakness?denies.?Integ.:?Ornelas?denies.?Scars?denies.?Corns/calluses?admits.?Ingrown nails?denies.?Painful nails?denies.?Open Sores?denies.?Rashes?denies.?Neurologic:?Difficulty sleeping?denies.?Brain disorder?denies.?Numbness?denies.?Balance trouble?denies.?Confusion?denies.?Fainting/blackouts?denies.?Tingling?denies.?Tr emors?denies.? * Medical History:? * Surgical History:?RTS R 11/29 24LTS R Stent Bladder cysts * Hospitalization/Major Diagno stic Procedure:?No Hospitalization History. * Family History:?Mother: dece ased, diagnosed with Family history of arthritis.?Father: .? * Social History:?Tobacco Use:?Tobacco use other than smoking?Are you an other tobacco user??No ?Tobacco Control (Standard)?Tobacco use:?Nonsmoker ?Additional Findings: Tobacco non-user?Current nonsmoker ???Drugs/Alcohol:?Drugs?Have you used drugs other than those for medical reasons in the past 12 months??No ???Miscellaneous:?Caffeine: yes, frequency:, 1-2 cups per day. ?Children: yes. ?Marital status: . ?Occupation: Retired- [employer]. * Medications:?TakingLatanopro st 0.005 % Solution 1 drop into affected eye in the evening Ophthalmic Once a day Brimonidine Tartrate 0.2 % Solution 1 drop into affected eye Ophthalmic every 8 hrs Dorzolamide HCl-Timolol Mal 2-0.5 % Solution 1 drop into affected eye Ophthalmic Twice a day prednisoLONE Acetate 1 % Suspension 1 drop into affected eye Ophthalmic Twice a day Eliquis 5 MG Tablet as directed Orally Medication List reviewed and reconciled with the patientTaking Latanoprost 0.005 % Solution 1 drop into affected eye in the evening Ophthalmic Once a day Taking Brimonidine Tartrate 0.2 % Solution 1 drop into affected eye Ophthalmic every 8 hrs Taking Dorzolamide HCl-Timolol Mal 2-0.5 % Solution 1 drop into affected eye Ophthalmic Twice a day Taking prednisoLONE Acetate 1 % Suspension 1 drop into affected eye Ophthalmic Twice a day Taking Eliquis 5 MG Tablet as directed Orally Medication List reviewed and reconciled with the patient * Allergies:?N.K.D.A.yes[Aller gies Verified] Objective: * Vitals:?Ht:5 ft 10 in, Wt:19 8, BMI: 28.41, Shoe size:12, BP: 129/73 mm Hg, Ht- cm: 177.8 cm, Wt-k.81 kg. * Examination: ???General Examination: ?GENERAL APPEARANCE:?Reveals a pleasant, alert, well-nourished, well- developed, well hydrated individual, who demonstrates proper attention to hygiene/body habitus, and is in no acute distress, Pt serves as own?historian for office visit today.?ORIENTED:?person, place, and time.?Neurological: ?SENSORY:?Neurological exam reveals intact sensorium, pain sensation normal, vibration sensation intact, pinprick sensation is normal in the lower extremities, , Pt relates, paresthesia, Forefoot, Right.?Vascular: ?DP PULSES (B):?3/4, B/L.?PT PULSES (B):?3/4, B/L.?CAPILLARY FILL TIME:?immediate, all digits, B/L.?TROPHIC CONDITION-TEXTURE/ELASTICITY/TURGOR/HAIR GROWTH (B):?normal, B/L.?TEMPERTURE GRADIENT (C):?warm to cool, proximal to distal, B/L.?PIGMENTATION:?normal, B/L.?EDEMA (C):?absent, B/L.?Dermatologic: ?SKIN FINDINGS:?Skin exam reveals normal texture, elasticity, and turgor. There are no masses. The interspaces are clear.?Orthopedic: ?MUSCLE STRENGTH:?5/5 all groups in a symmetrical fashion , B/L.?MPJ PATHOLOGY:?Pain on Metatarsal Palpation distal 1/3 shaft, 3rd, RIGHT.?Neuroma Pain: ?PALPATION:?Pain with direct palpation of the intermetatarsal space, Pain with lateral compression of metatarsals, negative Dakota's click, 3rd interspace, RIGHT.?X-Rays - IMAGING REPORT: ?Clinical Indication(s):? Evaluate for Fracture.?Views:?3 views of Foot, AP, LAT, LO, RIGHT??Taken by trained?Podiatric Alarm Mechanic (?[place]).?Findings:?normal bone and soft tissue density consistent for patients age and sex.?Fracture:?Sign of possible Stress fracture? or old injury to distal 1/3 shaft 3rd metatarsal, increased cortical thickening, no overt fractures noted.?Nails: ?NAILS are:?Elongated, overgrown, dystrophic, lytic, greater than 3mm thick, discolored and friable with crumbly malodorous subungual debris, with pain on palpation, TA.? Assessment: * Assessment: 1.?Pain in right foot - M79. 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 Plan: * Treatment: * Procedures:?Debride Nails 1-5:?Procedure:?Due to the clinical pathology outlined in the exam findings, performance of this nail treatment is medically necessary as its management by an unskilled/untrained nonprofessional would put this patients foot and overall health at risk. Therefore, debridement to affected nail(s), as described in exam ( TA ), was performed exclusively by the physician of record to reduce/remove overall nail length, girth, thickness, subungual debris, and necrotic tissue, by manual and/or electrical means through the use of a nail nipper and/or dremel stylegrinder, to a more viable healthy nail plate or bed tissue 5 nails or fewer in number. Silver nitrate was used for any petechial bleeding as necessary. Definitive antifungal treatment options, both pharmaceutical and surgical, have been reviewed and discussed with the patient. The patient solely prefers the use of intermittent/as needed professional debridement services for their nail condition and understands that additional periodic treatments may be required as necessary to maintain effective symptomatic relief - 77899.? * Procedure Codes:?35152 X-RAY EXAM OF RIGHT FOOT 3V, Modifiers: 26 , [id number] DEBRIDE NAIL, 1-5 * Preventive Medicine:? ??Counseling:?Discussion:?-04: Office or other outpatient visit for the evaluation and management of a new patient, which required a medically appropriate history and/or examination and MODERATE level of DECISION MAKING for: 1 OR MORE CHRONIC PROBLEM(S) THATS WORSENING, 2 STABLE CHRONIC PROBLEMS, A NEWLY DIAGNOSED PROBLEM WITH UNCERTAIN PROGNOSIS, AN ACUTE COMPLICATED INJURY WITH MULTIPLE TREATMENT OPTIONS, OR AN ACUTE PROBLEM WITH ACCOMPANYING SYSTEMIC SYMPTOMS, THAT POSE(S) A MODERATE RISK OF MORBIDITY. THIS CONDITION MAY ALSO INCLUDE RX DRUG MANAGEMENT, OR A DECISON FOR MINOR SURGERY. The visit on the day of the encounter encompassed interpreting the data and educating the patient as to the nature of their condition, treatment options available according to their individual PMH, meds, allergies, and overall health/living conditions, as well as any potential risks or complications that may occur from a failure to adhere to, and participate in, the recommended course of therapy. The discussion included a complete verbal, and/or written explanation of the examination results, any x-rays taken, the proposed diagnosis, and outline of the treatment plan. A schedule for future care needs was also explained. The patient verbalized an understanding of the instructions at this time and agreed to be an active participant in their treatment. If the patient should think of any questions or concerns after the visit, I have encouraged the patient to call the office.?Fungal Nail Counseling:?The patient was counseled on the diagnosis, potential etiologies (including, but not limited to, environmental factors, genetic, immune deficiency), and the multiple treatment options for Onychomycosis. We discussed the risks and benefits of each option from performing no treatment, to ultraviolet light shoe treatment, to laser nail treatment, to applying topical antifungals, to taking oral antifungal medication, to surgical removal of the involved nail(s) with or without performing a matricectomy, or any combination thereof. We discussed the advantages and disadvantages of each of possible treatment and importance for adherence to all the recommended therapies for optimum success. This includes the necessity for weekly emery board self nail home debridements, and control the nail and skin environment as much as possible by only using a fresh, dry pair of shoes/socks each day, as well as keeping the skin as dry as possible through the use of sprays/powders if necessary. The patient was instructed to discard the emery board after use to prevent reinfection of the involved nail(s). We discussed the mycological and visual clinical effectiveness of topical vs oral antifungal treatments as well as each ones potential side effects and/or any patient- specific medication interactions. We discussed the reasons behind the important requirement of regular liver function testing with oral antifungal therapy for safety. Patient questions regarding use, dosage, successful outcomes, blood tests, and possible pharmaceutical interactions were reviewed and the patient verbalized that all answers were clearly understood.?Neuroma:?The patient was counseled on the diagnosis, possible etiologies (including foot structure/foot function/nonsupportive shoes/activity), treatment options, and importance for adherence to recommendations regarding the treatment for a Neuroma. The advantages and disadvantages of the treatment options including medications available, forefoot offloading padding, mechanically accomidative orthotics, supportive shoegear with adequate forefoot width, cortisone injection(s), experimental sclerosis therapy, and surgical treatment options including nerve release, nerve relocation, and complete nerve removal were discussed in detail with each procedures outcomes and possible sequlea (i.e.failure of procedure, stump neuroma formation, infection, chronic scarring, chronic pain). Patient questions re: the potential successes of conservative vs surgical treatment options were reviewed and their answers were understood. The patient verbally confirmed a full understanding of the above.?Orthotics:?I explained to the patient the benefits of OT use. I explained that orthoses are medically necessary to decrease the foot pain through proper mechanical control, support of their foot.?Podiatric Surgery Counseling:?Surgical procedures to treat the patients foot problem were discussed. We reviewed the risks of the procedure (described below) vs not having the procedure (persistent pain, deformity, risk for skin ulceration/infection, loss of toe). We discussed the potential procedure complications including, but not limited to: pain, swelling, bleeding, scarring, numbness, infection, delayed/non healing, floppy/unstable/shorthened toe, recurrence, failure of the procedure, overcorrection leading to plantarflexed/downward positioned toe, recurrence, need for further surgery, as well as the possibility for loss of the toe itself. We discussed the use of IV/Local anesthesia, and the usual post-op course for healing. No guarentees were given. The patient verbally indicated a full understanding of the above conversation, and any other of their questions were answered to their satisfaction.?Shoe Gear Counseling:?The patient and I reviewed the types of shoes they should be wearing. My recommendation included obtaining a well-fitted shoe with a good supportive, non-foldable nor twistable sole, plenty of toe/room for the forefoot, and proper arch support. Based on todays examination, I recommended the patient look for new shoes, by having their feet professionally measured. We discussed that generally the best time of the day for a shoe fitting is the afternoon. Different shoes types and brands to best match the patients occupation and vocation were discussed. Specific brand selection will be up to the patient, their individual foot condition/deformities, and fit. The patient and I reviewed the standard new shoe break in period by wearing them for a few hours a day while checking for redness or sores as wear time is increased. The patient verbally confirmed to understanding the information discussed.?Steriod Injection:?I explained that a steroid and local anesthetic injections are administered to relieve pain and inflammation and thereby meant to improve function. I explained the possible complications including but not limited to signs/symptoms of steroid flare, infection, bruising, atrophy, discoloration of skin, change/deviation in toe position, and that additional injections may be necessary, cortisone post-injection informative educational handout was dispensed to and reviewed with the patient.?X-rays:?Discussed and reviewed the X-rays with the patient. We discussed how the findings relate to the patients symptoms/complaints. Answered any and all questions..? ??Screening/Special Tests:?Fall Risk?Screening:?No falls in the past year ?FALLS: Screening for Future Fall Risk?Have you had any falls with injury in the past year??No * Follow Up:?2 Months * Images: * Sign off status: Completed true * Provider:?Tiarra Cristobal DPM Date:? Generated for Nicolás schmidt/Maria G/Lou on:?01/31/2025 11:24 AM EDT History and Physical Notes * HPI (History of Present Illness) Category Sub-Category Detail Notes Category Not es Painful Nails Pt States Last PCP Visit: Date:: 10/15/2024 Foot Pain Nature: feels like an ex tra pad on his foot Location: Forefoot, RIGHT Duration: , several months Onset: unknown, gradual, de nies trauma Course: worse Aggravated: any pressure Treatments: rest/alter normal da shelby activity Examination Category Sub-Category Detail Notes Category Not es Neuroma Pain PALPATION: Pain with direct palpation of the intermetatarsal space, Pain with lateral compression of metatarsals, negative Dakota's click, 3rd interspace, RIGHT Neurological SENSORY: Neurological exa m reveals intact sensorium, pain sensation normal, vibration sensation intact, pinprick sensation is normal in the lower extremities, , Pt relates, paresthesia, Forefoot, Right Dermatologic SKIN FINDINGS: Skin exam reveal s normal texture, elasticity, and turgor. There are no masses. The interspaces are clear Orthopedic MPJ PATHOLOGY: Pain on Metatars al Palpation distal 1/3 shaft, 3rd, RIGHT MUSCLE STRENGTH: 5/5 all groups in a symmetrical fashion , B/L General Examination GENERAL APPEARANCE: Reveals a pleasant, alert, well- nourished, well-developed, well hydrated individual, who demonstrates proper attention to hygiene/body habitus, and is in no acute distress, Pt serves as own historian for office visit today ORIENTED: person, place, and t heydi Vascular DP PULSES (B): 3/4, B/L PT PULSES (B): 3/4, B/L CAPILLARY FILL TIME: immediate, all digi ts, B/L TEMPERTURE GRADIENT (C): warm to cool, p roximal to distal, B/L TROPHIC CONDITION-TEXTURE/ELASTICITY/TURGOR/HAIR GROWTH (B): normal, B/L EDEMA (C): absent, B/L PIGMENTATION: normal, B/L Nails NAILS are: Elongated, overg rown, dystrophic, lytic, greater than 3mm thick, discolored and friable with crumbly malodorous subungual debris, with pain on palpation, TA X-Rays - IMAGING REPORT Findings: normal b one and soft tissue density consistent for patients age and sex Fracture: Sign of possible Str ess fracture or old injury to distal 1/3 shaft 3rd metatarsal, increased cortical thickening, no overt fractures noted Views: 3 views of Foot, AP, LAT, LO, RIGHT Taken by trained Podiatric Alarm Mechanic ( [place]) Clinical Indication(s): Evaluate for Fra cture
--- OUTSIDE RECORDS SUMMARY | 2025-01-31 11:24 | XMS_ITS | Continuity of Care Document ---
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 It does not include entries that were removed or entered in error. Problem Status Onset Date Problem Type Date of Resolution Comments Source Diagnosis: ICD-10-CM Z46.1 Encounter for fitting and adjustment of hearing aid Active Diagnosis [facility] Diagnosis: ICD-10-CM Z02.89 Encounter for other administrative examinations Active Diagnosis [facility] Encounters Combined list of: 1) Encounters from Department of Veterans Affairs facilities going backup to the last 18 months, not all VA inpatient encounters are included; 2) Encounters from the Department of Defense facilities going backup to 280 months. Location Location Details Encounter Type Encounter Number Reason For Visit Attending Provider ADM Date DC Date Status Disposition Source [facility] Outpatient Encounter [id number] Diagnos is: ICD-10- CM Z02.89 Encount er for other adminis trative examERI Collins 09/16 [facility] Outpatient Encounter [id number] 11/08 [facility] Outpatient Encounter [id number] 11/09 [facility] HEARING AID EXAM BOTH EARS [id number] Diagnos is: ICD-10- CM Z46.1 Encount er for fitting and adjustm ent of hearing aid NORMA HARRIS 11/21 [facility] CONFORMITY EVALUATION [id number] Diagnos is: ICD-10- CM Z46.1 Encount er for fitting and adjustm ent of hearing aid NORMA HARRIS 12/19 [facility] HEARING AID FITTING/CH ECKING [id number] Diagnos is: ICD-10- CM Z46.1 Encount er for fitting and adjustm ent of hearing aid CARLYAnnabelle DANIEL E 01/16 [facility] HEARING AID REPAIR/MOD IFYING [id number] Diagnos is: ICD-10- CM Z46.1 Encount er for fitting and adjustm ent of hearing aid CARLYAnnabelle DANIEL E 02/19 [facility] HEARING AID FITTING/CH ECKING [id number] Diagnos is: ICD-10- CM Z46.1 Encount er for fitting and adjustm ent of hearing aid Annabelle CARROLL 03/20 [facility] HEARING AID CHECK ONE EAR [id number] Diagnos is: ICD-10- CM Z46.1 Encount er for fitting and adjustm ent of hearing aid KATHREIN ALFARO L 04/18 [facility] HEARING AID REPAIR/MOD IFYING [id number] Diagnos is: ICD-10- CM Z46.1 Encount er for fitting and adjustm ent of hearing aid KATHERIN ALFARO L 05/08 [facility] HEARING AID REPAIR/MOD IFYING [id number] Diagnos is: ICD-10- CM Z46.1 Encount er for fitting and adjustm ent of hearing aid Annabelle CARROLL 06/06 [facility] HEARING AID FITTING/CH ECKING [id number] Diagnos is: ICD-10- CM Z46.1 Encount er for fitting and adjustm ent of hearing aid SENIORNORMA Manuel 06/11 [facility] HEARING AID CHECK ONE EAR [id number] 1. Diagnos is: ICD-10- CM Z46.1 Encount er for fitting and adjustm ent of hearing aid DOMINICKATHERIN MONTOYA L 06/26 [facility] HEARING AID REPAIR/MOD IFYING [id number] Diagnos is: ICD-10- CM Z46.1 Encount er for fitting and adjustm ent of hearing aid REJI GALLARDO 12/21 [facility] HEARING AID REPAIR/MOD IFYING [id number] Diagnos is: ICD-10- CM Z46.1 Encount er for fitting and adjustm ent of hearing aid DOMINICKATHERIN L 01/08 [facility]
--- OUTSIDE RECORDS SUMMARY | 2025-01-31 11:24 | XMS_ITS ---
Author Name [facility] [place] Organization [facility] [place] Address [address] [place] [address] Support Name Relationship Address Phone DINA COATES Next of Kin Unknown Unavailable DINA COATES Emergency Contact [address] [place] [address] Insurance Providers: All historical and current Section Date Range: From patient's date of to the date document was created. This section includes the names of all active insurance providers for the patient. Insurance Provider Type of Coverage Plan Name Start of Policy Coverage End of Policy Coverage Group Number Member ID Insurance Provider's Telephone Number Policy Dior's Name Patient's Relationship to Policy Dior [facility] Mar 12, 2013 [facility] [id number] Baron COATES PATIENT [place] PRESCRIPT ION [facility] Sep 12, 2006 [employer] [id number] Baron COATES PATIENT WE[employer]POINT MEDICAL EXPENSE (OPT/PROF ) [facility] Sep 12, 2006 [id number] Baron COATESIEL PATIENT Selected Encounter This section includes the information on record at [place] for the Encounter. Date/Time Encounter Type Encounter Description Reason Provider Source Jun 11, 2024 08:30 AM HEARING AID FITTING/CHECKIN G AUDIOLOGY ICD-10-CM Z46.1 Encounter for fitting and adjustment of hearing aid TIMO HARRIS Encounter Template Text not used by [place] Assessments - Encounter Diagnoses This section includes the primary and secondary diagnoses documented for the Encounter. Date/Time Primary/Secondary Diagnosis Diagnosis Name Provider Source Jun 11, 2024 08:44 AM PRIMARY Encounter for fitting and adjustment of hearing aid 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 This section includes future appointments and future orders which are active, pending or scheduled. Future Appointments This section includes appointments that were scheduled to occur 6 months from the date of the Encounter, up to a maximum of 20 appointments. The data comes from all [place] treatment facilities. Appointment Date/Time Appointment Type Appointme nt Facility Name Jun 26, 2024 02:00 PM AMBULATORY - REHAB MEDICIN E [facility] Encounter Notes: All associated encounter notes This section contains the clinical notes associated to the Encounter. Date/Time Encounter Note(s) Provider Source Jun 11, 2024 07:29 AM AUDIOLOGY NOTE: LOCAL TITLE: AUDIOLOGY HEALTH STRIKE OUT MACHINE OPERATOR STANDARD TITLE: AUDIOLOGY NOTE DATE OF NOTE: JUN 11, 2024@07:29 ENTRY DATE: JUN 11, 2024@07:30:07 AUTHOR: RADHA CHUNG COSIGNER: TIMO HARRIS URGENCY: STATUS: COMPLETED AUDIOLOGY HEALTH STRIKE OUT MACHINE OPERATOR Has ADDENDA June 11, 2024 History/Background: [place] was seen for a hearing aid follow up, unaccompanied. The [place] presented today reporting his right hearing aid is not working and he does not hear the start-up chime from the left hearing aid. Hearing aids: Phonak AUDEO L90-RL RICs Serial Numbers: [id number] Battery size: Rechargeable Date Issued: 12/20/2023 Hearing aid check: Both hearing aids were cleaned and checked. Replaced right wax guard and brushed microphones. Biologic check was good for both devices. Both hearing aids were connected to Docurated to verify battery life, left was at 90%, right at 89%. No firmware updates available at this time. Start-up chime was heard from both devices. Plan: The [place] will be contacted when left earmold arrives in the clinic. /derrick CHUNG Audiology Health Electorate Officer Signed: 06/11/2024 08:45 /elissa/ RYLAN INFANTE, CCC-A STAFF TAP PULLER Cosigned: 06/11/2024 08:50 06/20/2024 ADDENDUM STATUS: COMPLETED Left earmold received and certified, left message with Veterans to have the contact the clinic (no Comm Authon file). Need to schedule 30 min HAC/HT appointment for potato picker. Earmold placed in black cabinet. /derrick CHUNG Audiology Health Electorate Officer Signed: 06/20/2024 08:12 /elissa/ VIK Garza, CCC-A CHIEF, AUDIOLOGY/CENTRIFUGAL SEPARATOR Cosigned: 06/20/2024 08:20 06/21/2024 ADDENDUM STATUS: COMPLETED Appointment scheduled on 06/26/2024. Earmold placed in black cabinet. /derrick CHUNG Audiology Health Electorate Officer Signed: 06/21/2024 07:54 /derrick Garza CCC-A CHIEF, AUDIOLOGY/CENTRIFUGAL SEPARATOR Cosigned: 06/21/2024 08:28 RADHA CHUNG [facility]
--- OUTSIDE RECORDS SUMMARY | 2025-01-31 11:24 | XMS_ITS | Encounter Summary ---
Author Name [facility] [place] Organization [facility] [place] Address [address] [place] [address] Support Name Relationship Address Phone DINA COATES Next of Kin Unknown Unavailable DINA COATES Emergency Contact [address] [place] [address] Insurance Providers: All historical and current Section Date Range: From patient's date of to the date document was created. This section includes the names of all active insurance providers for the patient. Insurance Provider Type of Coverage Plan Name Start of Policy Coverage End of Policy Coverage Group Number Member ID Insurance Provider's Telephone Number Policy Dior's Name Patient's Relationship to Policy Dior [facility] Mar 12, 2013 [facility] [id number] Baron COATES PATIENT [facility] PRESCRIPT ION [facility] Sep 12, 2006 [employer] [id number] Baron COATESIEL PATIENT WE[employer] MEDICAL EXPENSE (OPT/PROF ) [facility] Sep 12, 2006 [id number] Baron COATESIEL PATIENT Selected Encounter This section includes the information on record at [place] for the Encounter. Date/Time Encounter Type Encounter Description Reason Provider Source Jun 26, 2024 02:00 PM HEARING AID CHECK ONE EAR AUDIOLOGY ICD-10-CM Z46.1 Encounter for fitting and adjustment of hearing aid VIK ALFARO Encounter Template Text not used by [place] Assessments - Encounter Diagnoses This section includes the primary and secondary diagnoses documented for the Encounter. 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 This section includes future appointments and future orders which are active, pending or scheduled. Future Appointments This section includes appointments that were scheduled to occur 6 months from the date of the Encounter, up to a maximum of 20 appointments. The data comes from all [place] treatment facilities. Appointment Date/Time Appointment Type Appointme nt Facility Name Dec 21, 2024 11:00 AM AMBULATORY - REHAB MEDICIN E [facility] Encounter Notes: All associated encounter notes This section contains the clinical notes associated to the Encounter. Date/Time Encounter Note(s) Provider Source Jun 26, 2024 07:49 AM AUDIOLOGY NOTE: LOCAL TITLE: AUDIOLOGY HEALTH CLOTH WORKER STANDARD TITLE: AUDIOLOGY NOTE DATE OF NOTE: JUN 26, 2024@07:49 ENTRY DATE: JUN 26, 2024@07:50:01 AUTHOR: RADHA CHUNG COSIGNER: VIK ALFARO URGENCY: STATUS: COMPLETED June 26, 2024 History/Background: was seen for a hearing aid follow up, unaccompanied. The [place] presented today to citrus picker his repaired left cShell weed sprayer earmold. Hearing aids: Phonak AUDEO L90-RL RICs Serial Numbers: [id number] Battery size: Rechargeable Date Issued: 12/20/2023 Attached the left cShell earmold to the hearing aid. Biologic check was good. Plan: Follow up as needed. /elissa/ RADHA CHUNG Audiology Health [place] Miner Blasting Signed: 06/26/2024 13:59 /elissa/ VIK Garza, [facility] CHIEF, AUDIOLOGY/COTTON STOMPER Cosigned: 06/26/2024 14:01 RADHA CHUNGRKaleb ROSS
--- OUTSIDE RECORDS SUMMARY | 2025-01-31 11:24 | XMS_ITS ---
Author Organization [facility] scott Morganza Address [address] [place] [address] Care Team Providers Care Bin Tripper Operator Name Role Phone Stu Panchal M.D Primary Care Provider Tiarra Ruelas [phone] REASON FOR VISIT [facility] Encounters Encounter Location Date Provider Diagnosis [address] [place] [address] 11/27/2024 Tiarra Cristobal Plan Of Treatment Next Appt Details Provider Name:Tiarra cedeño, 02/12/2025 01:30:00 PM, [address] [place] [address], [phone], Progress Notes * AMINATAAndreDiorOB: 3 (79 yo M)Acc No.[id number]:11/27/2024 Patient:?AMINATAHernan :1945???Age:79 Y???Sex:Male Address:[address] [place], [address] * true * Date:? Generated for Printi brayan/Maria G/eTransmitting on:?01/31/2025 11:24 AM EDT
--- OUTSIDE RECORDS SUMMARY | 2025-01-31 11:24 | XMS_ITS ---
Author Name [facility] [place] Organization [facility] [place] Address [address] [place] [address] Support Name Relationship Address Phone DINA COATES Next of Kin Unknown Unavailable DINA COATES Emergency Contact [address] [place] [address] Insurance Providers: All historical and current Section Date Range: From patient's date of to the date document was created. This section includes the names of all active insurance providers for the patient. Insurance Provider Type of Coverage Plan Name Start of Policy Coverage End of Policy Coverage Group Number Member ID Insurance Provider's Telephone Number Policy Dior's Name Patient's Relationship to Policy Dior [facility] Mar 12, 2013 [facility] [id number] Baron COATES PATIENT [facility] PRESCRIPT ION [facility] Sep 12, 2006 [facility] [id number] Baron COATESIEL PATIENT WELLPOINT MEDICAL EXPENSE (OPT/PROF ) [facility] Sep 12, 2006 [id number] Baron COATESIEL PATIENT Selected Encounter This section includes the information on record at [place] for the Encounter. Date/Time Encounter Type Encounter Description Reason Provider Source Jan 08, 2025 10:00 AM HEARING AID REPAIR/MODIFYING AUDIOLOGY ICD-10-CM Z46.1 Encounter for fitting and adjustment of hearing aid VIK ALFARO Encounter Template Text not used by [place] Assessments - Encounter Diagnoses This section includes the primary and secondary diagnoses documented for the Encounter. 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 Date/Time Encounter Note(s) Provider Source Jan 08, 2025 07:24 AM AUDIOLOGY NOTE: LOCAL TITLE: AUDIOLOGY HEALTH PROOF OPERATOR STANDARD TITLE: AUDIOLOGY NOTE DATE OF NOTE: JAN 08, 2025@07:24 ENTRY DATE: JAN 08, 2025@07:24:25 AUTHOR: RADHA CHUNG COSIGNER: VIK ALFARO URGENCY: STATUS: COMPLETED January 08, 2025 History/Background: [place] was seen for a hearing aid follow up, unaccompanied. The [place] presented today to molded goods spot picker his new earmolds. The requested to have adjustments made today. Informed the he may be happy with the sound quality with the new earmolds and to try them out for a week or two, if he continues to struggle in certain settings to contact the clinic to see an Occ Ther for adjustments. The [place] understood. Hearing aids: Phonak AUDEO L90-RL RICs Serial Numbers: [id number] Battery size: Rechargeable Date Issued: 12/20/2023 Hearing aid check: Both hearing aids were cleaned and checked. Removed the old earmolds and attached the new. Biologic check was good. The fit appeared excellent and the [place] agreed. The old earmolds were discarded. Plan: The will contact the clinic if programming adjustments are needed, he should be schedule for a 30 min HAC with an Occ Ther. /elissa/ RADHA CHUNG Audiology Health Storage Administrator Signed: 01/08/2025 10:04 /elissa/ VIK Garza CCC-A CHIEF, AUDIOLOGY/GRAPE PRUNER Cosigned: 01/08/2025 10:57 RADHA CHUNG [facility]
--- OUTSIDE RECORDS SUMMARY | 2025-01-31 11:24 | XMS_ITS | Patient Health Record ---
Author Organization [facility] [place] Address [address] [facility] [place] [address] Care Team Providers Care Insurance Sales Manager Name Role Phone Stu Panchal M.D Primary Care Provider Tiarra Ruelas Unavailable [phone] Allergies No Known Allergies Reason For Referral No Information Medications Medication SIG (Take, Route, Frequency, Duration) Notes Start Date End Date Status Latanoprost 0.005 % 1 drop into affected eye in the evening Ophthalmic Once a day Active Brimonidine Tartrate 0.2 % 1 drop into a ffected eye Ophthalmic every 8 hrs Active Dorzolamide HCl-Timolol Mal 2-0.5 % 1 drop into affected eye Ophthalmic Twice a day Active prednisoLONE Active Latanoprost 0.005 % 1 drop into affected eye in the evening Ophthalmic Once a day Active Eliquis 5 MG as directed Orally Active Brimonidine Tartrate 0.2 % 1 drop [...] specify (0 point) Points 0 Interpretation Negative Problems Problem Type SNOMED Code ICD Code Onset Dates Problem Status W/U Status Risk Notes Problem Moreira's neuroma of right foot (462516997627 108) 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 Vital Signs Blood pressure diastolic 73 mm Hg 11/27/2024 Height 5 ft 10 in in 11/27/2024 Blood pressure systolic 129 mm Hg 11/27/2024 Weight 198 lbs 11/27/2024 BMI 28.41 kg/m2 11/27/2024 Encounters Encounter Location Date Provider Diagnosis [facility] [address] 11/27/2024 Tiarra Cristobal Pain in right foot M79.671 ; Moreira's neuroma of right foot G57.61 ; Onychomycosis B35.1 ; Pain in left toe(s) M79.675 and Metatarsalgia, right foot M77.[address] [facility] [address] 11/27/2024 Tiarra Cristobal Assessments Encounter Date Diagnosis (ICD Code) Assessment [...] Foot, right 3V 11/27/2024 Next Appt Details Provider Name:Tiarra cedeño, 02/12/2025 01:30:00 PM, [address] [place] [address], [phone], Insurance Providers Payer Name Payer Address Payer Phone Subscriber Number Group Number Insured Name Patient Relationship to Insured Coverage Start Date Coverage End Date [facility] [address] [place] [id number] Hernan Gimenez Self - patient is the insured Medical (General) History Medical History History ICD Code Arthritis Back,Hip,and Knee pain Cataracts Measles Mumps Chicken pox Joint implants/screws blood clots Stroke IC Surgical History Surgery Date(Month/Year) RTS R 12/03 LTS R STENT Bladder cysts
== END 2025-01-31 11:42 | disposition home or self-care (01) ==
LOC: HO.HUSH 10:43
PROVIDERS: PCP Family Medicine; Visit Provider Urology
DX: R35.0 Frequency of micturition (principal); R31.29 Other microscopic hematuria; C67.9 Malignant neoplasm of bladder, unspecified; N31.9 Neuromuscular dysfunction of bladder, unspecified; Z13.9 Encounter for screening, unspecified
CPT/HCPCS: 52000; 99213

== ENCOUNTER 2025-02-21 13:27 | Outpatient (AMB) | payer OTHER, SELFPAY ==
--- NOTE | 2025-02-21 13:27 | A.OFFVIS_ITS ---
Intake Visit Reasons: discuss procedure Intake Note: Patient presents today for tele visit for H&P Urology Medication:NONE Antibiotic Allergy:NONE Blood Thinner:APIXABAN Artist Suspect Required: No Allergies No Known Allergies [No Known Allergies*] Allergy (Verified 02/22/25 10:03) Medication List - Last Reconciled 02/22/25 by PAULINA Huitron-MALA apixaban (Eliquis) 5 mg PO BID brinzolamide-brimonidine 1-0.2 % (Simbrinza) 1 drp ophthalmic (eye) Q12H dorzolamide-timolol 22.3-6.8 mg/mL 1 drp ophthalmic (eye) Q12H latanoprost 0.005% 1 drp ophthalmic (eye) BEDTIME netarsudil 0.02% (Rhopressa) 1 drp ophthalmic (eye) DAILY sulfamethoxazole-trimethoprim 800-160 mg 1 tab PO BID timolol maleate 0.5% 1 drp ophthalmic (eye) QAM HPI Comments Details: Hernan is a pleasant 79-year-old male patient of Dr. Panchal. He has a past medical history of DVT on Eliquis, glaucoma, bladder cancer with multiple TURBTs and biopsies, and CVA. He is being followed up on today via telehealth for his right-sided hydronephrosis. In discussion with the patient's Noemy who provides much of today's health history she reports patient had a recent CT of the abdomen and pelvis that noted hydronephrosis and recommendations were made for her to follow-up with his urologist for further assessment evaluation. CT report was obtained and reviewed during today's telehealth visit. 02/12/25 CT abdomen and pelvis with and without contrast notes indeterminate lesion identified within the left kidney, corresponds to a hemorrhagic and or percutaneous cysts. No enhancing renal masses are identified. Right UPJ obstruction. There is a urethral thickening and enhancement present with the distal right ureter, with adjacent stranding. No well-formed masses are identified. These findings could be infectious or inflammatory per radiology report. These results were also reviewed and communicated with Dr. Pacheco. I did discussed with the patient and his today further treatment options and risks and benefits of these treatment options. When asked he denies any bothersome urinary issues or concerns. He denies urinary urgency, urinary frequency, incontinence, nocturia, hematuria, dysuria, foul smelling urine, changes to urinary stream, flank pain, fever, and or chills. He is happy with his current voiding parameters. Of note, patient was seen last month and underwent an office cystoscopy for his longstanding history of bladder cancer at which time there was a small lesion at the left lateral sidewall per last office note and plan was to review in 6 months. 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 In his also scheduled for shoulder surgery in May. All questions were answered. He otherwise offers no other issues or concerns at this time. PREVIOUS OFFICE NOTE: He seen for following urologic conditions - lower urinary tract symptoms - urgency and frequency with incomplete emptying - bladder cancer Six-month cystoscopy check Small lesion left lateral sidewall Review in six-month Lower urinary tract symptoms Prior prostate intervention Urinary urgency frequency with incomplete emptying Had responded well to InterStim placement InterStim interrogated 2019 with auto claim representative Nonfunctioning generator InterStim Lead and generator replacement 12/01 bladder Bladder cancer - superfical Prior superficial bladder cancer Cystoscopy 11/03 NAD with TURP defect; Cystoscopy with bladder biopsy and fulguration on 12/01; pathology results (Minute fragment of chronically inflamed lamina propria; no urothelium identified; multiple additional levels examined) - 04/03 NAD, 12/03 NAD Now with occasional hematuria Has been on anticoagulation for femoral clot Last seen Dr. Pacheco 02-[address] Also following up with vascular surgery for abdominal aorta Also due for shoulder surgery May No urinary issues PFSH Medical History DVT (deep venous thrombosis) Glaucoma Hx of bladder cancer Stroke H/O urinary frequency Surgical History Status post insertion of nerve stimulator Hx of cystoscopy History of surgery Social History Patient Tobacco Use Status: Former Tobacco user Review of Systems Const All systems reviewed & are unremarkable except as noted in HPI and below Physical Exam Const General: cooperative Resp Effort & Inspection: able to speak in complete sentences Psych Speech and movement: Clear speech present Attitude: cooperative Insight: Fair insight present (Psych) Judgement: Fair judgement present (Psych) Telehealth Telehealth Telehealth Platform: Telephone Location of provider rendering services: practice address Location of patient: address on file Patient Identification confirmed using: Name, : Yes Telehealth method: voice only Patient verbally consented to treatment: Yes Patient verbally consented to billing insurance company: Yes Patient informed of any privacy concerns related to visit: Yes Minutes spent on Phone/Video with Pt.: 20 Assessment & Plan Assessment & Plan (1) Bladder cancer: Code(s): C67.9 - Malignant neoplasm of bladder, unspecified Category: Medical (2) Hydronephrosis: Code(s): N13.30 - Unspecified hydronephrosis Category: Medical Plan: Risks, benefits and alternatives to therapy were discussed. These include but are not limited to infection, bleeding, damage to local organs and tissues, need for further interventions. ? Anesthetic risks regarding cardiac arrhythmia, blood clots, and potential mortality were discussed. The patient understands the typical recovery time and the outpatient nature of the procedure. After consideration of these risks the patient gives full informed consent and they wish to move ahead with the procedure. Plan Recent CT results were reviewed with the patient and his significant other Noemy at today's appointment. We discussed further intervention to include surgical intervention with cystoscopy right retrograde and potential right ureteral stent placement. He currently denies any bothersome urinary issues. We did discussed worsening symptoms. Will schedule for surgical procedure as discussed; risks and benefits Follow-up per doctor's orders; or sooner with any issues, concerns, and or questions. Patient Instructions: The patient had an opportunity to ask questions regarding the treatment plan. All questions were answered. Physical exam, labs, and imaging were discussed and reviewed in detail. As well as risks, benefits, and discussion of treatment choices. No major barriers to understanding were identified. The patient expressed understanding and agreement with the above treatment plan. The patient was made aware they should contact our office by phone for worsening of their current condition, the appearance of new symptoms, or with any qu estions or concerns. Compliance is encouraged with any medications and follow up testing that is ordered. It is a privilege to be allowed the opportunity to participate in? your urological care.? Again, if you have any questions or concerns If you have any questions or concerns please do not hesitate to contact me. The office is [phone]. This note is constructed using voice recognition software. While every effort has been made to ensure accuracy county commissioner errors may have been included. Yours sincerely, YOGESH Huitron Coding Level of Care Code Tele Est Pt Level 4 (13644) Diagnoses Bladder cancer C67.9 Hydronephrosis N13.30
--- OUTSIDE RECORDS SUMMARY | 2025-02-21 15:43 | XMS_ITS | Continuity of Care Document ---
Author Name [facility] Organization [facility] Care Team Providers Care Fire Control System Installer Name Role Phone [facility] Unavailable Unavailable Problems Combined list of problems [...] [facility] [id number] Diagnos is: ICD-10- CM Z02.89 Encount er for other adminis trative examERI Collins 09/16 [facility] Encounter [id number] 11/08 [facility] Outpatient Encounter [id number] 11/09 [facility] HEARING AID EXAM BOTH EARS [id number] Diagnos is: ICD-10- CM Z46.1 Encount er for fitting and adjustm ent of hearing aid NORMA HARRIS 11/21 [facility] CONFORMITY EVALUATION [id number] Diagnos is: ICD-10- CM Z46.1 Encount er for fitting and adjustm ent of hearing aid NORMA HARRIS 12/19 [facility] HEARING AID FITTING/CH ECKING [id number] Diagnos is: ICD-10- CM Z46.1 Encount er for fitting and adjustm ent of hearing aid CARLYAnnabelle DANIEL E 01/16 [facility] HEARING AID REPAIR/MOD IFYING [id number] Diagnos is: ICD-10- CM Z46.1 Encount er for fitting and adjustm ent of hearing aid CARLYAnnabelle DANIEL E 02/19 [facility] HEARING AID FITTING/CH ECKING [id number] Diagnos is: ICD-10- CM Z46.1 Encount er for fitting and adjustm ent of hearing aid Annabelle CARROLL 03/20 [facility] HEARING AID CHECK ONE EAR [id number] Diagnos is: ICD-10- CM Z46.1 Encount er for fitting and adjustm ent of hearing aid KATHERIN ALFARO L 04/18 [facility] HEARING AID REPAIR/MOD IFYING [id number] Diagnos is: ICD-10- CM Z46.1 Encount er for fitting and adjustm ent of hearing aid KATHERIN ALFARO L 05/08 [facility] HEARING AID REPAIR/MOD IFYING [id number] Diagnos is: ICD-10- CM Z46.1 Encount er for fitting and adjustm ent of hearing aid Annabelle CARROLL 06/06 [facility] HEARING AID FITTING/CH ECKING [id number] Diagnos is: ICD-10- CM Z46.1 Encount er for fitting and adjustm ent of hearing aid SENIORNORMA Manuel 06/11 [facility] HEARING AID CHECK ONE EAR [id number] 1. Diagnos is: ICD-10- CM Z46.1 Encount er for fitting and adjustm ent of hearing aid DOMINICKATHERIN MONTOYA L 06/26 [facility] HEARING AID REPAIR/MOD IFYING [id number] Diagnos is: ICD-10- CM Z46.1 Encount er for fitting and adjustm ent of hearing aid REJI GALLARDO 12/21 [facility] HEARING AID REPAIR/MOD IFYING [id number] Diagnos is: ICD-10- CM Z46.1 Encount er for fitting and adjustm ent of hearing aid DOMINICKATHERIN L 01/08 [facility]
== END 2025-02-21 14:57 | disposition home or self-care (01) ==
LOC: HO.HUSH 13:27
PROVIDERS: PCP Family Medicine; Visit Provider Nurse Practitioner Family
DX: C67.9 Malignant neoplasm of bladder, unspecified (principal); N13.30 Unspecified hydronephrosis
CPT/HCPCS: 99214

== ENCOUNTER → 2025-02-21 13:27 | Outpatient (BNVA) | payer OTHER, SELFPAY | PROVIDERS: PCP Family Medicine; Visit Provider Nurse Practitioner Family ==

== ENCOUNTER 2025-04-15 11:37 | Day surgery (SDC) | payer OTHER, SELFPAY ==
--- OUTSIDE RECORDS SUMMARY | 2025-03-11 08:14 | XMS_ITS | Patient Health Record ---
Author [facility] Address [address] [place] [address] Care Team Providers Care Contact Acid Plant Operator Name Role Phone Stu Panchal M.D Primary Care Provider Tiarra Ruelas Unavailable [phone] Allergies No Known Allergies Reason For Referral No Information Medications Medication SIG (Take, Route, Frequency, Duration) Notes Start Date End Date Status prednisoLONE Active Eliquis 5 MG as directed Orally Active Latanoprost 0.005 % 1 drop into affected eye in the evening Ophthalmic Once a day Active prednisoLONE Acetate 1 % 1 drop into aff ected eye Ophthalmic Twice a day Active Eliquis 5 MG as directed Orally Active Brimonidine Tartrate 0.2 % 1 drop into a ffected eye Ophthalmic every 8 hrs Active Dorzolamide HCl-Timolol Mal 2-0.5 % 1 drop into affected eye Ophthalmic Twice a day Active Brimonidine Tartrate 0.2 % 1 drop into a ffected eye Ophthalmic every 8 hrs Active Dorzolamide HCl-Timolol Mal 2-0.5 % 1 drop into affected eye Ophthalmic Twice a day Active Latanoprost 0.005 % 1 drop into affected eye in the evening Ophthalmic Once a day Active Social History Tobacco Use: Social History [...] Notes Problem Moreira's neuroma of right foot ([id number]) 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 Vital Signs Blood pressure diastolic 75 mm Hg 02/12/2025 Height 5 ft 10 in in 02/12/2025 Blood pressure systolic 130 mm Hg 02/12/2025 Weight 198 lbs 02/12/2025 BMI 28.41 kg/m2 02/12/2025 Encounters Encounter Location Date Provider Diagnosis [facility] [address] 11/27/2024 Tiarra Perica Pain in right foot M79.671 ; Moreira's neuroma of right foot G57.61 ; Onychomycosis B35.1 ; Pain in left toe(s) M79.675 and Metatarsalgia, right foot M77.[address] [facility] [address] 02/12/2025 Tiarra Perica Moreira's neuroma of right foot G57.[address] [address] 11/27/2024 Tiarra Pericgala Assessments Encounter Date Diagnosis (ICD Code) Assessment Notes Treatment Notes Treatment Clinical Notes Section Notes 11/27/2024 Pain in right foot (ICD-10 - M79.671) 11/27/2024 Moreira's neuroma of right foot (ICD-10 - G57.61) 02/12/2025 Moreira's neuroma of right foot (ICD-10 - G57.61) 11/27/2024 Onychomycosis (ICD-10 - B35.1) 11/27/2024 Pain in left toe(s) (ICD-10 - M79.675) 11/27/2024 Metatarsalgia, right foot (ICD-10 - M77.41) 02/12/2025 Other Plan Of Treatment Pending Test Test Name Order Date X ray : Foot, right 3V 11/27/2024 Next Appt Details Provider Name:Tiarra Cedeño [place] cedeño, 04/19/2025 02:00:00 PM, [address] [place], [address], Insurance Providers Payer Name Payer Address Payer Phone Subscriber Number Group Number Insured Name Patient Relationship to Insured Coverage Start Date Coverage End Date [employer] [address] [place] [address] [id number] Hernan Gimenez Self - patient is the insured Medical (General) History Medical History History ICD Code Arthritis Back,Hip,and Knee pain Cataracts Measles Mumps Chicken pox Joint implants/screws blood clots Stroke IC Surgical History Surgery Date(Month/Year) RTS R 12/03 LTS R STENT Bladder cysts
[2025-04-11 13:48] VITALS: BMI 29.2
--- NOTE | 2025-04-12 12:53 | HO.ANESPROP2 ---
Documented by User: Abbi Abarca NP 04/12/25 13:10 HPI - Anesthesia Eval Consult details Narrative: 80yo M for Right CystoscopyRetrograde with possible Ureteral Stent Placement Incidental finding of penetrating ulcer in infrarenal abdominal aorta 02/2025. Evaluated by [facility]. ECHO, Stress, Carotid US OK. Deemed optimized for shoulder surgery. Eliquis for hx CVA, DVT, PFO Case reviewed with [facility] Active Problems Active Problems: All Active Problems Hydronephrosis (Acute) Hypotonic neurogenic bladder (Acute) Bladder cancer (Acute) Microscopic hematuria (Acute) Urinary frequency (Acute) Urinary urgency (Acute) Past Medical History Medical History PFO (patent foramen ovale) Interstitial cystitis Dysphagia Arthritis DVT (deep venous thrombosis) Glaucoma Hx of bladder cancer Stroke H/O urinary frequency Family History Family history of problems with anesthesia: No Surgical History Surgical History Hx of total shoulder replacement History of lumbar laminectomy Hx of cataract extraction Hx of adenoidectomy History of esophagogastroduodenoscopy (EGD) H/O colonoscopy Hx of total knee replacement History of carpal tunnel release Status post insertion of nerve stimulator Hx of cystoscopy History of Problems with Anesthesia: No Social History Social History Are you a primary physician assistant primary care to a significant other at home: No Do you presently have visiting nurse or other home services: No Patient Tobacco Use Status: Former Tobacco user Use of substances other than those prescribed or required for medical reasons: No Have you been hit, kicked, punched, or otherwise hurt by someone within the past year? If so, by whom?: No Are you DNR?: No Advance Directives: No Advance Directives Information Provided: Yes Poor oral hygiene: Yes Meds Allergies Allergy/AdvReac Type Severity Reaction Status Date / Time No Known Allergies (No Known Allergy Verified 04/15/25 12:58 Allergies*) Home Medications ?Medication ?Instructions ?Recorded ?Confirmed ?Last Taken ?Type dorzolamide 22.3 mg-timolol 6.8 1 drp ophthalmic (eye) Q12H 07/25/20 04/11/25 12/14/21 History mg/mL eye drops latanoprost 0.005 % eye drops 1 drp ophthalmic (eye) BEDTIME 07/25/20 04/11/25 Unknown History apixaban 5 mg tablet (Eliquis) 5 mg PO BID 10/07/21 04/15/25 04/09/25 History netarsudil 0.02 % eye drops 1 drp ophthalmic (eye) DAILY 10/07/21 04/11/25 12/14/21 History (Rhopressa) brinzolamide 1 %-brimonidine 0.2 % 1 drp ophthalmic (eye) Q12H 02/02/22 04/11/25 Unknown History eye drops,suspension (Simbrinza) timolol maleate 0.5 % eye drops 1 drp ophthalmic (eye) QAM 02/02/22 04/11/25 Unknown History sulfamethoxazole 800 1 tab PO BID 02/21/25 Unknown History mg-trimethoprim 160 mg tablet rosuvastatin 20 mg tablet 20 mg PO DAILY 04/11/25 04/11/25 Unknown History Exam Height,Weight and Vital Signs: Height 5 ft 9 in Weight 89.8 kg Narrative Narrative: Carotid US 02/2025 ECHO 03/2025 Nuc Stress 02/2025 Assessment and Plan Assessment Anesthesia Assessment: Chart Reviewed Final Anesthetic Review Family History of Problems with Anesthesia: No History of Problems with Anesthesia: No Documented by User: Zaheer Higgins MD 04/15/25 13:38 PMFSH Past Medical History Medical History PFO (patent foramen ovale) Interstitial cystitis Dysphagia Arthritis DVT (deep venous thrombosis) Glaucoma Hx of bladder cancer Stroke H/O urinary frequency Surgical History Surgical History Hx of total shoulder replacement History of lumbar laminectomy Hx of cataract extraction Hx of adenoidectomy History of esophagogastroduodenoscopy (EGD) H/O colonoscopy Hx of total knee replacement History of carpal tunnel release Status post insertion of nerve stimulator Hx of cystoscopy Social History Social History Are you a primary physician assistant primary care to a significant other at home: No Do you presently have visiting nurse or other home services: No Patient Tobacco Use Status: Former Tobacco user Use of substances other than those prescribed or required for medical reasons: No Have you been hit, kicked, punched, or otherwise hurt by someone within the past year? If so, by whom?: No Are you DNR?: No Advance Directives: No Advance Directives Information Provided: Yes Poor oral hygiene: Yes Meds Allergies Allergy/AdvReac Type Severity Reaction Status Date / Time No Known Allergies (No Known Allergy Verified 04/15/25 12:58 Allergies*) Home Medications ?Medication ?Instructions ?Recorded ?Confirmed ?Last Taken ?Type dorzolamide 22.3 mg-timolol 6.8 1 drp ophthalmic (eye) Q12H 07/25/20 04/11/25 12/14/21 History mg/mL eye drops latanoprost 0.005 % eye drops 1 drp ophthalmic (eye) BEDTIME 07/25/20 04/11/25 Unknown History apixaban 5 mg tablet (Eliquis) 5 mg PO BID 10/07/21 04/15/25 04/09/25 History netarsudil 0.02 % eye drops 1 drp ophthalmic (eye) DAILY 10/07/21 04/11/25 12/14/21 History (Rhopressa) brinzolamide 1 %-brimonidine 0.2 % 1 drp ophthalmic (eye) Q12H 02/02/22 04/11/25 Unknown History eye drops,suspension (Simbrinza) timolol maleate 0.5 % eye drops 1 drp ophthalmic (eye) QAM 02/02/22 04/11/25 Unknown History sulfamethoxazole 800 1 tab PO BID 02/21/25 Unknown History mg-trimethoprim 160 mg tablet rosuvastatin 20 mg tablet 20 mg PO DAILY 04/11/25 04/11/25 Unknown History Exam Airway Mallampati Class: I TM Dist: >3cm Neck ROM: Full Denture: Upper Heart: ok. see above. Lungs: ok Assessment and Plan Assessment Anesthesia Assessment: Anesthesia Plan Discussed Final Anesthetic Review NPO: Yes ASA Class: III Final Preanesthetic Review: No Changes in Pt Med Stat, Meds/Allgs Chart Reviewed, Consent Obtained/Reviewed and Anes Risks/Benef Reviewed Patient Risk: Intermediate Procedure Risk: Low Anesthetic Plan Anesthetic Plan: GA and Agree w/ Assess. and Plan Disposition: Standard PACU
--- NOTE | ~2025-04-15 | FL_ITS ---
EXAMINATION: FL GUIDANCE ONLY HISTORY: Stone right COMPARISON: None available. TECHNIQUE: Fluoroscopy time: 38.6 seconds. Cumulative Dose: 14.75 mGy. Images: 1. FINDINGS: A single fluoroscopic spot film of the right upper quadrant demonstrates partial opacification of the right intrarenal collecting system, which is unremarkable in appearance. FL/FL guidance in OR IMPRESSION: Fluoroscopy during procedure. Please see procedure report for additional information. Electronically signed by: Waldo Redman MD 04/15/2025 02:24 PM EDT
[2025-04-15 12:59] VITALS: BP 148/71; PULSE 55; RESP 12; TEMP 36.6; O2SAT 98; BMI 28.6
[2025-04-15] MEDS: Lactated Ringers 1,000 ML 100 ML IVCONT (13:03)
--- NOTE | 2025-04-15 13:18 | MHC.SHP ---
Pre-Procedural Eval Section A - 24 Hr Update-Section A only Date of Service: 04/15/25 The patient is an INPATIENT: No Changes since office visit: No Cold of Flu in the past 2 weeks, No New Medical Problems, No Changes in Medication and No Patient answered all questions The patient has been examined within 24 hours of the surgical procedure. The History & Physical has been completed within 30 days and I have reviewed it.: Yes Section B - Complete if H&P > 30 days Chief Complaint: Unspecified hydronephrosis Details of Present Illness: Right hydro nephrosis Relevant Social History: None Present Medications: see Short Stay Collaborative assessment Medical History: Significant History History of Previous Operations: Relevant previous surgery/procedure and date(s) Allergies: Allergies Allergy/AdvReac Type Severity Reaction Status Date / Time No Known Allergies (No Known Allergy Verified 04/15/25 12:58 Allergies*) Review of Systems Sugical H&P ROS: Negative: Constitution, Cardiovascular, Respiratory, Neurological, Psychiatric, Hem-Onc, Allergic/Immunologic, Gastrointestinal, Genitourinary, Musculoskeletal, Integumentary, Endocrine and Eyes/Ears/Nose/Throat Exam Surgical H&P Exam: Normal: HEENT, Normal: Heart, Normal: Lungs, Normal: Extremities, Normal: Abdomen, Normal: Skin and Normal: Neurological Plan Diagnosis/Plan: Unchanged (Cystoscopy, right retrograde, right ureteroscopy) I have reviewed the history and physical and performed a pertinent physical examination on my patient. No changes have occurred unless specified. Time Spent With Patient Time: Total time managing care of this patient today ____ minutes.
[2025-04-15 14:18] VITALS: BP 101/49; PULSE 68; RESP 16; TEMP 36.6; O2SAT 94
[2025-04-15 14:20] VITALS: BP 96/54; PULSE 67; RESP 16; O2SAT 94
[2025-04-15 14:25] VITALS: BP 106/61; PULSE 62; RESP 16; O2SAT 95
[2025-04-15 14:30] VITALS: BP 117/58; PULSE 64; RESP 16; O2SAT 96
[2025-04-15 14:37] VITALS: BP 138/58; PULSE 55; RESP 16; TEMP 36.6; O2SAT 96
--- NOTE | 2025-05-08 16:58 | P.OP_ITS ---
Operative Note Operative Note Date of Service: 04/15/25 Narrative: PreOperative Diagnosis: Right hydro nephrosis with possible intrarenal mass Post Operative Diagnosis: No evidence of ureteric scarring or lesion within the right ureter or right ureteral pelvis Procedure: Cystoscopy, right retrograde, right ureteroscopy Surgeon: Dr Balta Pacheco Anesthesia: LMA Indications for procedure: Imaging findings Procedure: After informed consent was verified the patient was brought to the operating room and placed in a supine position. Anesthesia was administered per protocol. The patient was prepped and draped in a sterile fashion. Safety pause time-out was performed. Antibiotics being given. Patient was in a modified dorsal lithotomy position 24 [place] cystoscope placed per urethra. No abnormalities found within the bladder. Right ureteric orifice seen in normal position. Right ureteric orifice cannulated and a retrograde examination performed. No filling defect or abnormality seen within the right ureter. No hydronephrosis noted. Sensor guidewire placed to the level of the renal pelvis [place] dilator used to dilate right ureteric orifice under fluoroscopy Right ureteroscopy performed flexible ureteral scope over the wire. No abnormality found in right renal pelvis Scope was removed. Rigid scope was used to empty bladder. Patient tolerated the procedure well was extubated in the operating room and transferred to stable condition Pathology: [] Drains: []
== END 2025-04-15 15:00 | disposition home or self-care (01) ==
PROVIDERS: PCP Family Medicine; Visit Provider Urology
PROC: (CPT 52005; principal; 2025-04-15 13:40)
DX: C67.9 Malignant neoplasm of bladder, unspecified (principal); N13.30 Unspecified hydronephrosis; R39.15 Urgency of urination; R35.0 Frequency of micturition; R31.9 Hematuria, unspecified; Z86.718 Personal history of other venous thrombosis and embolism; Z79.01 Long term (current) use of anticoagulants
CPT/HCPCS: 52005; C1758; C1769; J1956; J2003; J2704; J3010; Q9967

== ENCOUNTER → 2025-04-15 11:37 | Outpatient (BNV) | payer OTHER, SELFPAY | PROVIDERS: PCP Family Medicine; Visit Provider Urology | DX: N13.30 Unspecified hydronephrosis (principal) | CPT/HCPCS: 52351; 74420 ==